=== PATIENT | female | born 1955 | race Caucasian/White ===

== ENCOUNTER → 2016-07-16 | Outpatient (CLI) | payer MEDICARE, OTHER ==
[2016-07-16 07:37] LABS: Blood Urea Nitrogen 19 mg/dL (7-17); Non-African American GFR(MDRD) >60 (>60 ml/min/1.73 sqM)
--- NOTE | 2016-07-16 09:14 | CT ---
EXAMINATION TYPE: CT soft tissue neck w con DATE OF EXAM: 07/16/2016 8:19 AM HISTORY: Neck Mass, history of melanoma at top of head. Palpable mass right mandible per patient COMPARISON: CT neck January 13, 2016. CT DLP: 700.6 mGycm. Automated Exposure Control for Dose Reduction was Utilized. TECHNIQUE: CT scan of the neck is performed with IV Contrast, patient injected with 100 mL of Omnipa que 300, axial images are obtained, coronal and sagittal reformatted images are reviewed. FINDINGS: Airway: No gross abnormality seen. Parotid/submandibular glands: Fairly moderate symmetric fat replaced atrophy of both submandibular gl ands is redemonstrated. There is asymmetric diminished size of left parotid gland with mild to modera te fat replaced atrophy of both parotid glands redemonstrated. Surgical clips posteriorly are consist ent with prior excision at this level posterior left parotid gland. Carotid/Vascular Structures: No significant plaque or stenosis on carotid bulb level bilaterally Osseous Structures: Spine is straightened stable from prior. Other: No worrisome solid or cystic mass or abnormal fluid collection is identified with particular a ttention to the right submandibular level. There are few scattered benign-appearing subcentimeter lym ph nodes throughout the neck including slightly more prominent but stable subcentimeter submental lym ph nodes on axial image 45. No concerning greater than 1 cm new neck lymph nodes are clearly seen. There is 1.3 x 0.8 cm right posterior scalp soft tissue nodule at level of cerebellum on axial image 68, in retrospect may have been present back to April 19, 2015 exam, does not extend to skin surfa ce, on prior PET/CT November 2013 may be present but less prominent on axial image 30. IMPRESSION: Possible new or enlarging deep subcutaneous nodule right posterior scalp at level of post erior fossa in which metastatic melanoma recurrence cannot be excluded, consider repeat PET/CT to fur ther assess.
== END | disposition home or self-care (01) ==
LOC: RADCTMAIN 06:42
PROVIDERS: ATTEND Internal Medicine Hematology & Oncology
DX: C43.22 Malignant melanoma of left ear and external auricular canal (principal); R22.1 Localized swelling, mass and lump, neck
CPT/HCPCS: 82565; 84520; 70491; Q9967

== ENCOUNTER → 2016-08-01 | Outpatient (CLI) | payer MEDICARE, OTHER ==
--- NOTE | 2016-08-03 09:42 | PE ---
Nuclear medicine PET/CT HISTORY: Melanoma Patient received 10.2 mCi of F-18 FDG intravenously. Delayed scanning performed whole body. Correlation previous nuclear medicine PET/CT 12/16/2013, CT 07/16/2016, CT chest abdomen pelvis 2015 The exam is somewhat degraded by patient's body habitus. Neck and chest: At the posterior right neck there is a focus of activity, SUV 11.2 within the posteri or musculature on the right which corresponds to the abnormality seen on patient's neck CT. No eviden t adenopathy. No lung mass. No pleural or pericardial effusion. The left-sided uptake seen on prior m edicine PET/CT within the parotid gland is no longer evident. Post op changes are present in the left parotid. Abdomen pelvis: No retroperitoneal adenopathy. Patient is post cholecystectomy. No hypermetabolic upt manas. Diverticular change noted in the sigmoid colon. Left ovary is present. Uterus and right ovary ar e not seen. No evident adenopathy. Osseous structures: Degenerative disc changes in the visualized spine. Within the right knee, left an kle some mild hypermetabolic uptake may be related to degenerative change. EXTREMITIES: There is muscular uptake noted. IMPRESSION: Posterior scalp musculature on the right is asymmetric and suspicious, somewhat more cons picuous than on previous exam and is indeterminate, there is elevated SUV. Interval surgery to the le ft parotid gland. No additional suspicious hypermetabolic uptake.
== END | disposition home or self-care (01) ==
LOC: RADPETMAIN 13:26
PROVIDERS: ATTEND Internal Medicine Hematology & Oncology
DX: C43.9 Malignant melanoma of skin, unspecified (principal)
CPT/HCPCS: 78816; A9552

== ENCOUNTER → 2017-05-14 | Outpatient (CLI) | payer MEDICARE, OTHER ==
--- NOTE | 2017-05-14 11:18 | BD ---
EXAMINATION TYPE: MG DEXA axial skeleton. DATE OF EXAM: 05/14/2017 COMPARISON: NONE CLINICAL HISTORY: 61 YR OLD FEMALE: ICD-10 CODE.....Z78.0 POST MENOPAUSAL W/O HRT Height: 64.4 Weight: 273 FRAX RISK QUESTIONS: Alcohol (3 or more units per day): NO Family History (Parent hip fracture): NO Glucocorticoids (More than 3mos): YES (Ex: prednisone, prednisolone, methylprednisolone, dexamethasone, and hydrocortisone). History of Fracture in Adulthood: NO Secondary Osteoporosis: YES 1. Type 1 Diabetes: YES 2. Hyperthyroidism: NO 3. Menopause before 45: NO 4. Malnutrition: NO 5. Chronic liver disease: NO Rheumatoid Arthritis: NO Current Tobacco Use: NO RISK FACTORS HISTORY OF: LT ANKLE, RT ARM.... AN ADULT...UNDER AGE 48 Family History of Osteoporosis: YES, GRANDMOTHER, NO FX OF HIP Active: YES Diet low in dairy products/other sources of calcium: NO Postmenopausal woman: AT 52 YRS OLD Lost more than 2 inches in height since high school: NO Hyperparathyroidism: NO Adrenal Insufficiency: NO MEDICATIONS: Prednisone or other steroids: SINGULAIR, FOR ASTHMA, ALBUTEROL INHALER MACHINE How Lon+ YRS Thyroid Medications: YES, GENERIC SYNTHROID How Lon YRS Additional Medications: BP MEDS, CELEXA, CHEMO AND RADIATION, REFLUX MED, DIABETIC MEDS, INSULIN, VIT D3 Additional History: MELANOMA, LYMPHOMA, EXAM MEASUREMENTS: Bone mineral densitometry was performed using the [employer] System. Bone mineral density as measured about the Lumbar spine is: ----- L1-L4(G/cm2): 1.372 T Score Values are as follows: ----- L1: 0.6 ----- L2: 1.8 ----- L3: 2.6 ----- L4: 1.0 ----- L1-L4: 1.6 Bone mineral density FIRST BONE DENSITY AT [facility] Bone mineral density about the R hip (g/cm2): 1.063 Bone mineral density about the L hip (g/cm2): 1.005 T Score values are as follows: -----R Neck: -1.2 -----L Neck: -1.2 -----R Total: 0.4 -----L Total: 0.0 Bone mineral density FIRST AT [facility] FRAX%S: THERE IS A 18.0% CHANCE OF A MAJOR OSTEOPOROTIC FX AND A 1.5% FOR HIP FX....PROBABILITY OF FX IN 10 YRS TIME IMPRESSION: No evidence for osteoporosis or osteopenia. NOTE: T-SCORE=SD OF THE YOUNG ADULT MEAN.
== END | disposition home or self-care (01) ==
LOC: RADBDWWP 08:39
PROVIDERS: ATTEND Family Medicine
DX: Z78.0 Asymptomatic menopausal state (principal)
CPT/HCPCS: 77080

== ENCOUNTER → 2017-08-14 | Outpatient (CLI) | payer MEDICARE, OTHER ==
--- NOTE | 2017-08-16 12:03 | PE ---
EXAMINATION TYPE: PET CT fusion whole body DATE OF EXAM: 08/14/2017 COMPARISON: Prior PET/CT February 06, 2017 and older studies HISTORY: Melanoma head and neck area progress study. Surgery in 2015 per patient. TECHNIQUE: Following the intravenous administration of 12.54 mCi of F-18 FDG, whole body images are performed from the top of skull to the bottom of feet. Images are reviewed on the computer in the co ken[place], axial, and sagittal planes. Reconstructed rotating images are created on independent workstat ion and reviewed on the computer. A localization noncontrast CT is performed in conjunction with e PET scan. SCAN: Subsequent Scan FINDINGS: HEAD: No new areas of suspicious hypermetabolic uptake are present. There is prior excision or defect high right occipital region axial images 4 through 10 noted. Suspect successful treatment to low rig ht occipital lesion near axial image 44 probable excisional between July and January 2017 as there i s deformity without hypermetabolic uptake on current study similar to most recent PET/CT study. NECK: No new areas of suspicious hypermetabolic uptake are seen. CHEST, MEDIASTINUM, AND HILAR REGION: No new areas of abnormal hypermetabolic uptake are present. ABDOMEN AND PELVIS: No new areas of abnormal hypermetabolic uptake are present. OSSEOUS STRUCTURES: No suspicious new areas of hypermetabolic uptake. EXTREMITIES: No new suspicious soft tissue foci of hypermetabolic uptake. OTHER CT: Prominent but subcentimeter's a metabolic submandibular lymph nodes are incidentally noted bilaterally. Cholecystectomy clips are seen. There are scattered pelvic phleboliths. Uterus is surgically absent. There is symmetric lateral subluxation or positioning of patella at the patellofemoral space. There i s symmetric mild to moderate generalized atrophy of medial leg muscles axial image 140. There is symm etric mild posterior and inferior subcutaneous edema in the hindfoot. IMPRESSION: No recurrent hypermetabolic soft tissue nodule to suggest melanoma recurrence is identifi ed. No significant change from most recent PET/CT.
== END | disposition home or self-care (01) ==
LOC: RADPETMAIN 09:34
PROVIDERS: ATTEND Internal Medicine Hematology & Oncology
DX: C43.22 Malignant melanoma of left ear and external auricular canal (principal)
CPT/HCPCS: 78816; A9552

== ENCOUNTER → 2018-02-12 | Outpatient (CLI) | payer MEDICARE, OTHER ==
--- NOTE | 2018-02-13 16:26 | PE ---
EXAMINATION TYPE: PET CT fusion whole body DATE OF EXAM: 02/12/2018 COMPARISON: Prior PET/CT 2017 and older studies. HISTORY: Melanoma originally diagnosed in the neck and 2007 completed chemotherapy in 2009 and radiat ion treatment in 2010 TECHNIQUE: Following the intravenous administration of 11.94 mCi of F-18 FDG, whole body images are performed from the top of skull to the bottom of the feet. Images are reviewed on the computer in th e coronal, axial, and sagittal planes. Reconstructed rotating images are created on independent work station and reviewed on the computer. A noncontrast CT is performed in conjunction with the PET sca n. SCAN: Subsequent Scan FINDINGS: HEAD AND NECK: Focal scalp defect high right occipital region axial image 5 is redemonstrated. No ne w areas of hypermetabolic uptake or suspicious masses are present. No new suspicious hypermetabolic u ptake is seen in the neck. CHEST, MEDIASTINUM, AND HILAR REGION: No new areas of abnormal hypermetabolic uptake are present. ABDOMEN AND PELVIS: No new areas of abnormal hypermetabolic uptake are identified. OSSEOUS STRUCTURES: No suspicious areas of hypermetabolic uptake. LOWER EXTREMITIES: No new suspicious soft tissue foci of hypermetabolic uptake. OTHER CT: Prominent but subcentimeter ametabolic submandibular lymph nodes are redemonstrated bilater ally near image 68. Cholecystectomy clips are again seen. There are scattered pelvic phleboliths. Uterus is surgically absent. There is symmetric lateral subluxation or positioning of patella at the patellofemoral space. There i s symmetric mild to moderate generalized atrophy of medial leg muscles axial image 78 redemonstrated. IMPRESSION: No suspicious recurrent hypermetabolic mass to suggest melanoma recurrence. No significan t change from most recent PET/CT.
== END | disposition home or self-care (01) ==
LOC: RADPETMAIN 08:29
PROVIDERS: ATTEND Internal Medicine Hematology & Oncology
DX: C43.22 Malignant melanoma of left ear and external auricular canal (principal)
CPT/HCPCS: 78816; A9552

== ENCOUNTER → 2018-08-13 | Outpatient (CLI) | payer MEDICARE, OTHER ==
--- NOTE | 2018-08-15 07:30 | PE ---
EXAMINATION TYPE: PET CT fusion whole body DATE OF EXAM: 08/13/2018 COMPARISON: CT neck November 16, 2016. Whole-body CT January 13, 2016. Prior PET/CT February 12 18 and older PET/CTs HISTORY: History of malignant melanoma diagnosed and treated 2013 and 2014 TECHNIQUE: Following the intravenous administration of 10.95 mCi of F-18 FDG, whole body images are performed from the top of skull to the bottom of feet. Images are reviewed on the computer in the co ken[place], axial, and sagittal planes. Reconstructed rotating images are created on independent workstat ion and reviewed on the computer. A noncontrast CT is performed in conjunction with the PET scan. SCAN: Subsequent Scan FINDINGS: Exam noted slightly suboptimal due to patient body habitus. SKULL BASE AND NECK: Right occipital scalp defect axial images 6 through 11 is redemonstrated. No ne w areas of suspicious hypermetabolic uptake throughout the scalp or neck. CHEST, MEDIASTINUM, AND HILAR REGION: No areas of suspicious hypermetabolic uptake. ABDOMEN AND PELVIS: No new areas of suspicious hypermetabolic uptake. OSSEOUS STRUCTURES: No suspicious hypermetabolic uptake. LOWER EXTREMITIES: Moderate bilateral patellofemoral narrowing is present bilaterally with lateral p ositioning. Mild generalized atrophy medial leg muscles bilaterally is again seen. OTHER CT: Evaluation is suboptimal secondary to patient's large body habitus. Stable prominent but harrison bcentimeter bilateral submandibular lymph nodes. Cholecystectomy clips are redemonstrated. Some diverticula in the sigmoid colon are again seen. Uteru s is surgically absent. Scattered pelvic phleboliths are redemonstrated. IMPRESSION: No new suspicious hypermetabolic masses to suggest metastatic melanoma recurrence. No sig nificant change from recent PET/CT.
== END | disposition home or self-care (01) ==
LOC: RADPETMAIN 07:24
PROVIDERS: ATTEND Internal Medicine Hematology & Oncology
DX: C43.22 Malignant melanoma of left ear and external auricular canal (principal)
CPT/HCPCS: 78816; A9552

== ENCOUNTER → 2019-08-04 | Outpatient (CLI) | payer MEDICARE, OTHER ==
--- NOTE | 2019-08-04 13:04 | PE ---
EXAMINATION TYPE: PET CT fusion whole body DATE OF EXAM: 08/04/2019 COMPARISON: Prior PET/CT August 13, 2018 and older PET CTs. HISTORY: Melanoma of the scalp diagnosed 2012 with neck recurrence 2017 and surgical dissection progr ess study. TECHNIQUE: Following the intravenous administration of 11.60 mCi of F-18 FDG, whole body images are performed from the top of skull to the bottom of the feet. Images are reviewed on the computer in th e coronal, axial, and sagittal planes. Reconstructed rotating images are created on independent work station and reviewed on the computer. A noncontrast CT is performed in conjunction with the PET sca n. SCAN: Subsequent Scan FINDINGS: Slightly suboptimal due to patient's large body habitus. HEAD AND NECK: High posterior occipital scalp defect up to cranial bone redemonstrated. No new areas of suspicious hypermetabolic uptake in the soft tissue of the scalp or neck identified. CHEST, MEDIASTINUM, AND HILAR REGION: Some artifact related to patient's body habitus. Focus of uptak e left upper extremity presumed injection site on the reconstructed rotated view. No new areas of sid picious hypermetabolic uptake. ABDOMEN AND PELVIS: No new areas of suspicious hypermetabolic uptake. OSSEOUS STRUCTURES: No new areas of suspicious hypermetabolic uptake. EXTREMITIES: No new areas of suspicious hypermetabolic uptake. Persistent mild to moderate generalize d medial lower leg muscular atrophy and moderate to advanced degenerative changes in both knees redem onstrated. OTHER CT: Stable prominent but subcentimeter bilateral submandibular lymph nodes. Cholecystectomy clips are redemonstrated. Some scattered colonic diverticula again seen. Uterus is harrison rgically absent. Scattered pelvic phleboliths are redemonstrated. IMPRESSION: No new suspicious hypermetabolic soft tissue masses to suggest metastatic melanoma recurr ence.
== END | disposition home or self-care (01) ==
LOC: RADPETMAIN 07:54
PROVIDERS: ATTEND Internal Medicine Hematology & Oncology
DX: C43.22 Malignant melanoma of left ear and external auricular canal (principal); E11.9 Type 2 diabetes mellitus without complications; Z92.21 Personal history of antineoplastic chemotherapy
CPT/HCPCS: 78816; A9552

== ENCOUNTER 2020-06-27 06:57 | Day surgery (SDC) | payer MEDICARE, OTHER ==
[2020-06-25 10:23] VITALS: BMI 42.3
[~2020-06-27 06:57] MED LIST: LACTATED RINGERS 1,000 ML IV SCH
[2020-06-27 07:20] VITALS: TEMP 97.6
[2020-06-27 07:37] LABS: Glucose,Whole Blood 195 mg/dL (75-99)
[2020-06-27] MEDS ORDERED: LIDOCAINE 1% (10MG/ML) FOR IV START INTRADERMA ONE (07:37)
[2020-06-27] MEDS ORDERED: PROPOFOL 10 MG/ML 20 ML VIAL IV ONE (07:54)
[2020-06-27] MEDS ORDERED: GLUCAGON 1 MG/ML VIAL ONE (07:54)
--- NOTE | 2020-06-27 07:58 | P.GSHP ---
History of Present Illness H&P Date: 06/27/20 Chief Complaint: Change in bowel habits, screening colonoscopy Is a 64-year-old female her screening colonoscopy. She's had change in bowel habits with some diarrhea. Past Medical History Past Medical History: Asthma, Cancer, Diabetes Mellitus, GERD/Reflux, Hyperlipidemia, Hypertension, Pneumonia, Thyroid Disorder Additional Past Medical History / Comment(s): IDDM, HX MELANOMA & LYMPH NODES, TORN LEFT ROTATOR CUFF, HX COLON POYPS, OAB, HAVING DIARRHEA. History of Any Multi-Drug Resistant Organisms: None Reported Past Surgical History: Appendectomy, Breast Surgery, Section, Cholecystectomy, Heart Catheterization, Hysterectomy, Orthopedic Surgery Additional Past Surgical History / Comment(s): BREAST REDUCTION; REMOVAL OF MELANOMA OFF TOP HEAD & REMOVED LYMPH NODE-6 ON EACH SIDE OF NECK ;L ANKLE FX & REPAIR., 4 lymph nodes at back of head removed. Past Anesthesia/Blood Transfusion Reactions: No Reported Reaction, Motion Sickness Additional Past Anesthesia/Blood Transfusion Reaction / Comment(s): HX VERTIGO Past Psychological History: No Psychological Hx Reported Smoking Status: Never smoker Past Alcohol Use History: None Reported Past Drug Use History: None Reported - Past Family History Mother Family Medical History: Cancer Additional Family Medical History / Comment(s): mother breast and bone, Father Family Medical History: Cancer Son(s) Family Medical History: Cancer Brother(s) Family Medical History: Cancer Sister(s) Family Medical History: Cancer Medications and Allergies Home Medications Medication Instructions Recorded Confirmed Type Cholecalciferol [Vitamin D3] 5,000 unit PO DAILY 09/05/13 06/27/20 History Citalopram Hydrobromide [CeleXA] 40 mg PO DAILY 09/05/13 06/27/20 History Levothyroxine Sodium [Synthroid] 50 mcg PO DAILY 09/05/13 06/27/20 History Lisinopril [Prinivil] 5 mg PO DAILY 09/05/13 06/27/20 History Meclizine [Antivert] 25 mg PO DIRECTED PRN 09/05/13 06/27/20 History Montelukast [Singulair] 10 mg PO DAILY 09/05/13 06/27/20 History Naproxen 500 mg PO DIRECTED PRN 09/05/13 06/27/20 History Vitamin E (Dl,Tocopheryl Acet) 400 unit PO DAILY 09/05/13 06/27/20 History [Vitamin E] Aspirin [Adult Low Dose Aspirin EC] 81 mg PO DAILY 06/25/20 06/27/20 History Diphenoxylate HCl/Atropine 2 tab PO QID PRN 06/25/20 06/27/20 History [Lomotil 2.5-0.025 mg Tablet] Ergocalciferol [Vitamin D2 (1250 1,250 mcg PO WEEKLY 06/25/20 06/27/20 History Mcg = [id number] Iu)] Famotidine [Pepcid] 20 mg PO BID PRN 06/25/20 06/27/20 History Garlic 1 each PO DAILY 06/25/20 06/27/20 History Insulin Aspart Protam & Aspart 52 unit SQ BID 06/25/20 06/27/20 History [NovoLOG MIX 70-30 Flexpen] L.acidoph,Paracasei, B.lactis 1 each PO DAILY 06/25/20 06/27/20 History [Probiotic] Oxybutynin Chloride [Ditropan XL] 10 mg PO DAILY 06/25/20 06/27/20 History sitaGLIPtin [Januvia] 100 mg PO DAILY 06/25/20 06/27/20 History Allergies Allergy/AdvReac Type Severity Reaction Status Date / Time [facility] Allergy Rash/Hives Verified 06/25/20 09:51 codeine Allergy Nausea & Verified 06/25/20 09:52 Vomiting, Headache lemon [Lemon] Allergy Rash/Hives Verified 06/25/20 09:51 Sulfa (Sulfonamide Allergy Swelling Verified 06/25/20 09:51 Antibiotics) hoyt AdvReac Severe Diarrhea Verified 06/25/20 09:52 nickel AdvReac Unknown red skin Verified 06/25/20 10:24 Jewelry AdvReac Unknown Red skin Uncoded 06/25/20 10:25 Surgical - Exam Vital Signs Temp Pulse Resp BP Pulse Ox 97.6 F 86 16 156/84 90 L 06/27/20 07:18 06/27/20 07:18 06/27/20 07:18 06/27/20 07:18 06/27/20 07:18 - General well developed, well nourished, no distress - Eyes PERRL - ENT normal pinna - Neck no masses - Respiratory normal expansion - Cardiovascular Rhythm: regular - Abdomen Abdomen: soft, non tender Results - Labs Abnormal Lab Results - Last 24 Hours (Table) 06/27/20 Range/Units 07:34 POC Glucose (mg/dL) 195 H (75-99) mg/dL Assessment and Plan Assessment: We'll perform screening colonoscopy
--- NOTE | 2020-06-27 08:11 | P.OP ---
Date of Procedure: 06/27/20 Preoperative Diagnosis: Screening colonoscopy Diarrhea Postoperative Diagnosis: Internal and external hemorrhoids Diverticulosis Procedure(s) Performed: Colonoscopy Anesthesia: MAC Surgeon: Chema Drake Pathology: none sent Condition: stable Disposition: PACU Description of Procedure: The patient's placed on the endoscopy table lateral position. She received IV sedation. Digital rectal exam was performed which revealed internal and external hemorrhoids. There is she a small thrombosed hemorrhoid. The flexible colonoscope was then placed patient anus passed throughout the entire colon. The ileocecal valve was visualized. Cecum, ascending and transverse colon appeared normal. The descending old appeared normal. In the sigmoid colon there is extensive diverticular disease with evidence of previous diverticulitis. The colon was quite scarred this area. Scope was withdrawn anus and this appeared normal. Scope was withdrawn for patient.
[2020-06-27 09:23] VITALS: BP 140/76; PULSE 66; RESP 20
== END 2020-06-27 09:00 | disposition home or self-care (01) ==
LOC: ORWHC2ENDO 06:57
PROVIDERS: ATTEND Surgery
DX: Z87.19 Personal history of other diseases of the digestive system (principal); K64.5 Perianal venous thrombosis; J45.909 Unspecified asthma, uncomplicated; E11.9 Type 2 diabetes mellitus without complications; K21.9 Gastro-esophageal reflux disease without esophagitis; E78.5 Hyperlipidemia, unspecified; I10 Essential (primary) hypertension; Z87.01 Personal history of pneumonia (recurrent); E07.9 Disorder of thyroid, unspecified; Z85.820 Personal history of malignant melanoma of skin; Z86.010 Personal history of colon polyps; N32.81 Overactive bladder; Z90.89 Acquired absence of other organs; Z98.891 History of uterine scar from previous surgery; Z98.890 Other specified postprocedural states; Z90.49 Acquired absence of other specified parts of digestive tract; Z90.710 Acquired absence of both cervix and uterus; Z80.3 Family history of malignant neoplasm of breast; Z80.8 Family history of malignant neoplasm of other organs or systems; Z80.9 Family history of malignant neoplasm, unspecified; Z79.82 Long term (current) use of aspirin; Z79.890 Hormone replacement therapy; Z79.4 Long term (current) use of insulin; Z79.899 Other long term (current) drug therapy; Z88.5 Allergy status to narcotic agent; Z91.018 Allergy to other foods; Z91.048 Other nonmedicinal substance allergy status; Z91.09 Other allergy status, other than to drugs and biological substances
CPT/HCPCS: 45378; J1610; J2704

== ENCOUNTER → 2020-08-23 | Outpatient (CLI) | payer MEDICARE, OTHER ==
--- NOTE | 2020-08-27 12:52 | PE ---
EXAMINATION TYPE: PET CT fusion whole body DATE OF EXAM: 08/23/2020 COMPARISON: No recent CT exams Prior PET/CT: 08/04/2019 HISTORY: Melanoma TECHNIQUE: Following the intravenous administration of 10.03 mCi of F-18 FDG, whole body images are performed from the skull base to the midthigh. Images are reviewed on the computer in the coronal, a xial, and sagittal planes. Reconstructed rotating images are created on independent workstation and reviewed on the computer. A localization and attenuation correction CT is performed in conjunction with the PET scan. DLP: 723.98 mGycm SCAN: Subsequent Scan Blood glucose: 122 mg/dL Average Mediastinum SUV: 2.02 Average Liver SUV: 2.34 FINDINGS: Brain: No suspicious uptake identified. MRI recommended for more sensitive evaluation. NECK: Some subtle increased radiotracer submental region. This could correspond to a couple of small lymph nodes within this region. THORAX: Some minimal uptake may be within the left axillary region. No enlarged lymphadenopathy is ev ident. Small lymph node may have an SUV value of 0.99 which is within the inflammatory range. Conside r recent immunizations. ABDOMEN: No abnormal uptake PELVIS: No abnormal uptake Lower extremity: No abnormal uptake. There is diffuse uptake through a right lateral calf muscle. OSSEOUS STRUCTURES: No abnormal uptake LOCALIZATION CT: Noncontributory. There is limitation due to body habitus and technical factors. Some diverticulosis is noted COMPARISON: No significant interval change. IMPRESSION: 1. Mild uptake within the submental region and left axillary region could be inflammatory lymph nodes . Early metastasis is considered less likely. SUV values are in the intermediate range. 2. Suspicious hyperintensity within study not evident o suggest metastatic disease
== END ==
LOC: RADPETMAIN 07:19
PROVIDERS: ATTEND Internal Medicine Hematology & Oncology
DX: I88.9 Nonspecific lymphadenitis, unspecified (principal); C43.22 Malignant melanoma of left ear and external auricular canal
CPT/HCPCS: 78816; A9552

== ENCOUNTER → 2020-09-17 | Outpatient (CLI) | payer MEDICARE, OTHER ==
--- NOTE | 2020-09-17 14:53 | XR ---
EXAMINATION TYPE: XR chest 2V DATE OF EXAM: 09/17/2020 COMPARISON: Chest x-ray 05/07/2010 HISTORY: Hypoxemia, cough and shortness of breath TECHNIQUE: Frontal and lateral views of the chest are obtained. FINDINGS: There is no focal air space opacity, pleural effusion, or pneumothorax seen. The cardiac silhouette size is stable, borderline enlarged, patient is rotated and there is persistent elevation of right hemidiaphragm. The previously seen port in the left pectoral region has been removed. There is bronchial wall thickening. The osseous structures are intact. IMPRESSION: Correlate for bronchitis, reactive airways disease, follow-up as indicated. Borderline h eart size, persistent elevation right hemidiaphragm.
== END | disposition home or self-care (01) ==
LOC: RADXRMAIN 12:10
PROVIDERS: ATTEND Family Medicine
DX: J98.6 Disorders of diaphragm (principal); R09.02 Hypoxemia
CPT/HCPCS: 71046

== ENCOUNTER → 2021-08-15 | Outpatient (CLI) | payer MEDICARE, OTHER ==
--- NOTE | 2021-08-15 15:31 | PE ---
Nuclear medicine PET/CT HISTORY: Melanoma, follow-up patient received 12.9 mCi F-18 FDG intravenously and delayed scanning was performed from the top of t he skull through the feet. An attenuation correction and localization CT scan was performed. Correlation to prior nuclear medicine PET/CT 08/23/2020 Head and neck shows no suspicious uptake. There is no cervical or supraclavicular adenopathy. CHEST: There is no mediastinal, axillary, or hilar adenopathy. No evident lung mass. No suspicious up take. There is no pleural pericardial effusion. ABDOMEN: There is no evident liver mass. Patient is post cholecystectomy. No retroperitoneal adenopat hy or adrenal mass. There is no ascites. No suspicious uptake. No pelvic adenopathy. Uterus and adnex al structures are not seen. Lower extremities show no suspicious uptake. Osseous structures are stable. IMPRESSION: There is no suspicious uptake is evident.
== END | disposition home or self-care (01) ==
LOC: RADXRMAIN 06:30
PROVIDERS: ATTEND Internal Medicine Hematology & Oncology
DX: C43.22 Malignant melanoma of left ear and external auricular canal (principal)
CPT/HCPCS: 78816; A9552

== ENCOUNTER → 2022-08-15 | Outpatient (CLI) | payer MEDICARE, OTHER ==
--- NOTE | 2022-08-16 09:05 | PE ---
EXAMINATION TYPE: PET CT fusion skull to thigh DATE OF EXAM: 08/15/2022 CLINICAL INDICATION:Female, 67 years old with history of C43.22 Melanoma; TECHNIQUE: Following the intravenous administration of 9.27 mCi of F-18 FDG, whole body images are performed from the skull base to the midthigh. Images are reviewed on the computer in the coronal, a xial, and sagittal planes. Reconstructed rotating images are created on independent workstation and reviewed on the computer. A non-contrast CT is performed in conjunction with the PET scan. Glucose level 172 mg/dL COMPARISON: CT 01/13/2016, PET/CT 08/15/2021, FINDINGS: Mediastinal SUV mean is 1.9. Hepatic parenchyma SUV mean is 3.0. SKULL BASE AND NECK: No suspicious radiotracer activity. CHEST, MEDIASTINUM, AND HILAR REGION:No suspicious radiotracer activity. ABDOMEN AND PELVIS: No suspicious radiotracer activity. MUSCULOSKELETAL STRUCTURES: No suspicious radiotracer activity. There is A focus of tracer uptake within the left arm near the cubital fossa max SUV a 8.0. Correlate for inje ction side. OTHER CT: Atherosclerosis of the arterial vasculature including the carotid bifurcations and coronary arteries. The gallbladder is surgically absent. Scattered colonic diverticula present. Multilevel di sc degeneration changes throughout the spine. Osteoporosis changes of the knees. IMPRESSION: 1. No suspicious radiotracer activity. 2. Area of uptake near the left cubital fossa felt to be secondary to injection correlate with injec tion side and physical exam.
== END | disposition home or self-care (01) ==
LOC: RADPETMAIN 07:02
PROVIDERS: ATTEND Internal Medicine Hematology & Oncology
DX: C43.22 Malignant melanoma of left ear and external auricular canal (principal); Z85.820 Personal history of malignant melanoma of skin
CPT/HCPCS: 78815; A9552

== ENCOUNTER → 2023-05-11 | Outpatient (CLI) | payer MEDICARE, OTHER ==
[2023-05-11 11:25] LABS: African American GFR (CKD) >90 (>60 ml/min/1.73 sqM); Blood Urea Nitrogen 14 mg/dL (7-17); Non-African American GFR(CKD) >90 (>60 ml/min/1.73 sqM)
--- NOTE | 2023-05-12 05:11 | CT ---
EXAMINATION TYPE: CT angio neck DATE OF EXAM: 05/11/2023 HISTORY: rt side carotid stenosis hx of melanoma on head and neck COMPARISON: Priors CT neck 2017 CT DLP: 529.5 mGycm. Automated Exposure Control for Dose Reduction was Utilized. TECHNIQUE: CTA scan of the head and neck is performed with IV Contrast, patient injected with 100 mL of Isovue 370, axial images are obtained, coronal and sagittal reformatted images are reviewed. 3D r econstructed images are created on an independent workstation and reviewed. FINDINGS: Carotid/Vascular Structures: Normal three-vessel origin from aortic arch. No significant plaque or st enosis. No significant plaque or stenosis in the common carotid arteries bilaterally. Mild to moderat e mixed plaque left carotid bulb without significant stenosis into the left internal carotid artery. Patent left external carotid artery. Mild calcified plaque distal left internal carotid artery. More severe mixed plaque right carotid bulb extends into proximal internal carotid artery with hemodynamic ally significant stenosis. The diameter is narrowed to 1.8 mm and reconstitutes to 6.2 mm distal to t his. No additional significant plaque or stenosis in the right internal carotid artery. Right vertebr al artery is dominant. Vertebral arteries are patent to basilar junction. Other: Enlarged main pulmonary artery of 3.6 cm suggesting underlying pulmonary artery hypertension. IMPRESSION: Severe mixed plaque right carotid bulb extends into proximal internal carotid artery caus ing hemodynamically significant stenosis with degree of diameter stenosis around 70% identified on th is study. NASCET criteria was used in interpretation of this exam?
== END | disposition home or self-care (01) ==
LOC: RADCTMAIN 10:41
PROVIDERS: ATTEND Family Medicine
DX: I65.21 Occlusion and stenosis of right carotid artery (principal)
CPT/HCPCS: 82565; 84520; 70498; 36415; Q9967

== ENCOUNTER → 2023-08-08 | Outpatient (CLI) | payer MEDICARE, OTHER ==
--- NOTE | 2023-08-08 17:14 | PE ---
EXAMINATION TYPE: PET CT fusion skull to thigh DATE OF EXAM: 08/08/2023 COMPARISON: No recent pertinent CT Prior PET/CT: 08/15/2022 HISTORY: Melanoma TECHNIQUE: Following the intravenous administration of 10.99 mCi of F-18 FDG, whole body images are performed from the skull base to the midthigh. Images are reviewed on the computer in the coronal, a xial, and sagittal planes. Reconstructed rotating images are created on independent workstation and reviewed on the computer. A localization and attenuation correction CT is performed in conjunction with the PET scan. DLP: 1422.26 mGycm SCAN: Subsequent Blood glucose: 200 mg/dL Average Mediastinum SUV: 3.14 Average Liver SUV: 3.44 FINDINGS: There is a heterogenous appearance to the study and radiotracer distribution. Small metasta tic lesions may be difficult to exclude. NECK: Suspicious focal uptake not identified THORAX: Suspicious focal uptake not identified ABDOMEN: Suspicious focal uptake not identified. Liver has a heterogenous appearance. PELVIS: Suspicious focal uptake not identified. OSSEOUS STRUCTURES: Suspicious focal uptake not identified. LOCALIZATION CT: Submental and submandibular lymphadenopathy is present. Suspicious radiotracer uptak e however is not identified. COMPARISON: No suspicious interval change IMPRESSION: 1. No suspicious uptake to suggest recurrent or metastatic melanoma. 2. There is some limitation on the examination due to heterogeneous distribution of radiotracer.
== END | disposition home or self-care (01) ==
LOC: RADPETMAIN 07:28
PROVIDERS: ATTEND Internal Medicine
DX: C43.22 Malignant melanoma of left ear and external auricular canal (principal)
CPT/HCPCS: 78815; A9552

== ENCOUNTER → 2024-01-07 | Outpatient (CLI) | payer MEDICARE, OTHER ==
[2024-01-07 15:31] LABS: ALT 18 U/L (8-44); AST 15 U/L (13-35); Albumin 4.1 g/dL (3.8-4.9); Albumin/Globulin Ratio 1.95 Ratio (1.60-3.17); Alkaline Phosphatase 52 U/L (41-126); BUN/Creat Ratio 16.12 Ratio (12.00-20.00); Blood Urea Nitrogen 12.9 mg/dL (9.0-27.0); Calcium 9.8 mg/dL (8.7-10.3); Carbon Dioxide 26.9 mmol/L (21.6-31.8); Chloride 104 mmol/L (96-109); Chol/HDL Ratio 4.36 Ratio; Globulin 2.1 g/dL (1.6-3.3); Glucose 186 mg/dL (70-110); LDL Cholesterol,Calculated 128.6 mg/dL (0.0-131.0); Potassium 4.7 mmol/L (3.5-5.5); Sodium 141 mmol/L (135-145); Total Bilirubin 0.6 mg/dL (0.3-1.2); Total Protein 6.2 g/dL (6.2-8.2)
== END | disposition home or self-care (01) ==
LOC: LABWHC1 10:33
PROVIDERS: ATTEND Internal Medicine Interventional Cardiology
DX: E78.2 Mixed hyperlipidemia (principal)
CPT/HCPCS: 36415; 80053; 80061

== ENCOUNTER → 2024-01-19 | Outpatient (CLI) | payer MEDICARE, OTHER ==
[2024-01-19 12:43] LABS: African American GFR (CKD) >90 (>60 ml/min/1.73 sqM); Blood Urea Nitrogen 26 mg/dL (7-17); Non-African American GFR(CKD) 86 (>60 ml/min/1.73 sqM)
--- NOTE | 2024-01-19 14:42 | CT ---
EXAMINATION TYPE: CT chest w con CT DLP: 809 mGycm, Automated exposure control for dose reduction was used. DATE OF EXAM: 01/19/2024 1:52 PM COMPARISON: Multiple PET CT with most recent 08/08/2023, CT chest abdomen and pelvis 01/13/2016 CLINICAL INDICATION:Female, 68 years old with history of J45.40 MODERATE PERSISTENT ASTHMA, UNCOMPL J 44.89; PHH, SOB, asthma TECHNIQUE: Multiple axial images were obtained through the chest following the administration of 100 cc of Isovue 300. . Coronal and sagittal reformats reviewed. FINDINGS: LUNGS/ PLEURA: No pleural effusion, pneumothorax, focal consolidation. No suspicious pulmonary nodule or mass. Elevation of the right hemidiaphragm. AIRWAY: Patent and unremarkable.. HEART: Size within normal limits.No pericardial effusion. Small coronary calcifications. MEDIASTINUM: No evidence of adenopathy. VASCULATURE: No aortic aneurysm. Mild atherosclerotic calcification of the aortic arch. No filling d efect identified within the central pulmonary arterial vasculature. Dilated main pulmonary artery whi ch can be seen with pulmonary arterial hypertension. MUSCULOSKELETAL: No acute osseous abnormalities. Advanced bilateral shoulder arthropathy. Mild multil evel degenerative disc disease. SOFT TISSUES/LYMPH NODES: Unremarkable. LOWER NECK: No significant findings. UPPER ABDOMEN: Gallbladder is surgically absent. Small periampullary duodenal diverticulum . IMPRESSION: No acute thoracic process. No evidence for recurrence within the chest and visualized upper abdomen. [facility], , 01/19/2024 2:40 PM
== END | disposition home or self-care (01) ==
LOC: RADCTMAIN 11:58
PROVIDERS: ATTEND Family Medicine
DX: J45.40 Moderate persistent asthma, uncomplicated (principal); J44.89 Other specified chronic obstructive pulmonary disease; K57.10 Diverticulosis of small intestine without perforation or abscess without bleeding; I70.0 Atherosclerosis of aorta
CPT/HCPCS: 82565; 84520; 71260; 36415; Q9967

== ENCOUNTER 2024-02-15 18:04 | Observation (INO) | payer MEDICARE, OTHER ==
--- NOTE | 2024-02-15 20:08 | ED ---
General Adult HPI - General Chief complaint: GI Bleed Stated complaint: NVD/blood in stool Source: patient Mode of arrival: ambulatory Limitations: no limitations - History of Present Illness Initial comments: 68-year-old female presenting with chief complaint of nausea vomiting diarrhea. Symptoms started on Wednesday. Yesterday the patient had blood clots in her stool. Admits to blood thinners. Admits to left lower quadrant pain. - Related Data Home Medications Medication Instructions Recorded Confirmed Cholecalciferol [Vitamin D3] 5,000 unit PO DAILY 09/05/13 06/27/20 Citalopram Hydrobromide [CeleXA] 40 mg PO DAILY 09/05/13 06/27/20 Levothyroxine Sodium [Synthroid] 50 mcg PO DAILY 09/05/13 06/27/20 Lisinopril [Prinivil] 5 mg PO DAILY 09/05/13 06/27/20 Meclizine [Antivert] 25 mg PO DIRECTED PRN 09/05/13 06/27/20 Montelukast [Singulair] 10 mg PO DAILY 09/05/13 06/27/20 Naproxen 500 mg PO DIRECTED PRN 09/05/13 06/27/20 Vitamin E (Dl,Tocopheryl Acet) 400 unit PO DAILY 09/05/13 06/27/20 [Vitamin E] Aspirin [Adult Low Dose Aspirin EC] 81 mg PO DAILY 06/25/20 06/27/20 Diphenoxylate HCl/Atropine 2 tab PO QID PRN 06/25/20 06/27/20 [Lomotil 2.5-0.025 mg Tablet] Ergocalciferol [Vitamin D2 (1250 1,250 mcg PO WEEKLY 06/25/20 06/27/20 Mcg = 54904 Iu)] Famotidine [Pepcid] 20 mg PO BID PRN 06/25/20 06/27/20 Garlic 1 each PO DAILY 06/25/20 06/27/20 Insulin Aspart Prot/Insuln Asp 52 unit SQ BID 06/25/20 06/27/20 [NovoLOG MIX 70-30 Flexpen] L.acidoph,Paracasei, B.lactis 1 each PO DAILY 06/25/20 06/27/20 [Probiotic] oxyBUTYnin chloride [Ditropan XL] 10 mg PO DAILY 06/25/20 06/27/20 sitaGLIPtin [Januvia] 100 mg PO DAILY 06/25/20 06/27/20 Allergies Allergy/AdvReac Type Severity Reaction Status Date / Time cayenne Allergy Rash/Hives Verified 02/15/24 18:54 codeine Allergy Nausea & Verified 02/15/24 18:54 Vomiting, Headache lemon [Lemon] Allergy Rash/Hives Verified 02/15/24 18:54 Sulfa (Sulfonamide Allergy Swelling Verified 02/15/24 18:54 Antibiotics) hoyt AdvReac Severe Diarrhea Verified 02/15/24 18:54 nickel AdvReac Unknown red skin Verified 02/15/24 18:54 coffee (Coffea arabica) AdvReac Diarrhea Verified 02/15/24 18:54 Jewelry AdvReac Unknown Red skin Uncoded 02/15/24 18:54 Review of Systems ROS Statement: Those systems with pertinent positive or pertinent negative responses have been documented in the HPI. ROS Other: All systems not noted in ROS Statement are negative. Past Medical History Past Medical History: Asthma, Cancer, Diabetes Mellitus, GERD/Reflux, Hyperlipi demia, Hypertension, Pneumonia, Thyroid Disorder Additional Past Medical History / Comment(s): IDDM, HX MELANOMA & LYMPH NODES, TORN LEFT ROTATOR CUFF, HX COLON POYPS, OAB, HAVING DIARRHEA. History of Any Multi-Drug Resistant Organisms: None Reported Past Surgical History: Appendectomy, Breast Surgery, Section, Cho lecystectomy, Heart Catheterization, Hysterectomy, Orthopedic Surgery Additional Past Surgical History / Comment(s): BREAST REDUCTION; REMOVAL OF MELANOMA OFF TOP HEAD & REMOVED LYMPH NODE-6 ON EACH SIDE OF NECK ;L ANKLE FX & REPAIR., 4 lymph nodes at back of head removed. COLONOSCOPY, Past Anesthesia/Blood Transfusion Reactions: No Reported Reaction, Motion Sickness Additional Past Anesthesia/Blood Transfusion Reaction / Comment(s): HX VERTIGO Past Psychological History: No Psychological Hx Reported Smoking Status: Never smoker Past Alcohol Use History: None Reported Past Drug Use History: None Reported - Past Family History Mother Family Medical History: Cancer Additional Family Medical History / Comment(s): mother breast and bone, Father Family Medical History: Cancer Son(s) Family Medical History: Cancer Brother(s) Family Medical History: Cancer Sister(s) Family Medical History: Cancer General Exam - General Exam Comments Initial Comments: Visual Physical Exam Vital signs reviewed General: Well-appearing, nontoxic, no acute distress. Head: Normocephalic, atraumatic Eyes: PERRLA, EOMI ENT: Airway patent Chest: Nonlabored breathing Skin: No visual rash, normal skin tone Neuro: Alert and oriented 3 Musculoskeletal: No gross abnormalities Limitations: no limitations Course Vital Signs 02/15/24 18:48 Temperature 98.6 F Pulse Rate 69 Respiratory 18 Rate Blood Pressure 104/71 O2 Sat by Pulse 95 Oximetry Medical Decision Making - Medical Decision Making I performed the quick note portion of this visit, electronically signed Sánchez Delgadillo PA-C - Lab Data Result diagrams: 02/15/24 20:07 02/15/24 20:07 Lab Results 02/15/24 02/15/24 02/15/24 Range/Units 20:07 20:07 20:07 WBC 12.1 H (3.8-10.6) k/uL RBC 5.07 (3.80-5.40) m/uL Hgb 15.0 (11.4-16.0) gm/dL Hct 46.0 (34.0-46.0) % MCV 90.8 (80.0-100.0) fL MCH 29.6 (25.0-35.0) pg MCHC 32.6 (31.0-37.0) g/dL RDW 13.2 (11.5-15.5) % Plt Count 259 (150-450) k/uL MPV 7.2 Neutrophils % 74 % Lymphocytes % 17 % Monocytes % 5 % Eosinophils % 2 % Basophils % 1 % Neutrophils # 9.0 H (1.3-7.7) k/uL Lymphocytes # 2.0 (1.0-4.8) k/uL Monocytes # 0.6 (0-1.0) k/uL Eosinophils # 0.2 (0-0.7) k/uL Basophils # 0.1 (0-0.2) k/uL APTT 22.4 (22.0-30.0) sec Sodium 134 L (137-145) mmol/L Potassium 4.3 (3.5-5.1) mmol/L Chloride 102 (98-107) mmol/L Carbon Dioxide 25 (22-30) mmol/L Anion Gap 7 mmol/L BUN 14 (7-17) mg/dL Creatinine 0.68 (0.52-1.04) mg/dL Est GFR (CKD-EPI)AfAm >90 (>60 ml/min/1.73 sqM) Est GFR (CKD-EPI)NonAf 89 (>60 ml/min/1.73 sqM) Glucose 165 H (74-99) mg/dL Calcium 9.2 (8.4-10.2) mg/dL Total Bilirubin 0.8 (0.2-1.3) mg/dL AST 19 (14-36) U/L ALT 18 (4-34) U/L Alkaline Phosphatase 51 (38-126) U/L Troponin I (0.000-0.034) ng/mL Total Protein 6.3 (6.3-8.2) g/dL Albumin 3.9 (3.5-5.0) g/dL Lipase (23-300) U/L 02/15/24 02/15/24 Range/Units 20:07 20:08 WBC (3.8-10.6) k/uL RBC (3.80-5.40) m/uL Hgb (11.4-16.0) gm/dL Hct (34.0-46.0) % MCV (80.0-100.0) fL MCH (25.0-35.0) pg MCHC (31.0-37.0) g/dL RDW (11.5-15.5) % Plt Count (150-450) k/uL MPV Neutrophils % % Lymphocytes % % Monocytes % % Eosinophils % % Basophils % % Neutrophils # (1.3-7.7) k/uL Lymphocytes # (1.0-4.8) k/uL Monocytes # (0-1.0) k/uL Eosinophils # (0-0.7) k/uL Basophils # (0-0.2) k/uL APTT (22.0-30.0) sec Sodium (137-145) mmol/L Potassium (3.5-5.1) mmol/L Chloride (98-107) mmol/L Carbon Dioxide (22-30) mmol/L Anion Gap mmol/L BUN (7-17) mg/dL Creatinine (0.52-1.04) mg/dL Est GFR (CKD-EPI)AfAm (>60 ml/min/1.73 sqM) Est GFR (CKD-EPI)NonAf (>60 ml/min/1.73 sqM) Glucose (74-99) mg/dL Calcium (8.4-10.2) mg/dL Total Bilirubin (0.2-1.3) mg/dL AST (14-36) U/L ALT (4-34) U/L Alkaline Phosphatase (38-126) U/L Troponin I <0.012 (0.000-0.034) ng/mL Total Protein (6.3-8.2) g/dL Albumin (3.5-5.0) g/dL Lipase 138 (23-300) U/L Disposition Clinical Impression: Diverticulitis Disposition: ADMITTED IP TO THIS HOSP Condition: Fair Referrals: Anna Lopez DO [Primary Care Provider] - 1-2 days Time of Disposition: 23:21
[2024-02-15 20:12] LABS: Basophils # (A) 0.1 k/uL (0-0.2); Basophils % (A) 1 %; Eosinophils # (A) 0.2 k/uL (0-0.7); Eosinophils % (A) 2 %; Lymphocytes % (A) 17 %; MCH 29.6 pg (25.0-35.0); MCHC 32.6 g/dL (31.0-37.0); MCV 90.8 fL (80.0-100.0); Mean Platelet Volume 7.2; Monocytes # (A) 0.6 k/uL (0-1.0); Monocytes % (A) 5 %; Neutrophils % (A) 74 %; Platelet Count 259 k/uL (150-450); RBC 5.07 m/uL (3.80-5.40); RDW 13.2 % (11.5-15.5); WBC 12.1 k/uL (3.8-10.6)
[2024-02-15 20:22] LABS: ALT 18 U/L (4-34); AST 19 U/L (14-36); African American GFR (CKD) >90 (>60 ml/min/1.73 sqM); Albumin 3.9 g/dL (3.5-5.0); Alkaline Phosphatase 51 U/L (38-126); Anion Gap 7 mmol/L; Blood Urea Nitrogen 14 mg/dL (7-17); Calcium 9.2 mg/dL (8.4-10.2); Carbon Dioxide 25 mmol/L (22-30); Chloride 102 mmol/L (98-107); Glucose 165 mg/dL (74-99); Non-African American GFR(CKD) 89 (>60 ml/min/1.73 sqM); Potassium 4.3 mmol/L (3.5-5.1); Sodium 134 mmol/L (137-145); Total Bilirubin 0.8 mg/dL (0.2-1.3); Total Protein 6.3 g/dL (6.3-8.2)
--- NOTE | 2024-02-15 21:06 | CT ---
EXAMINATION TYPE: CT abdomen pelvis w con DATE OF EXAM: 02/15/2024 8:59 PM COMPARISON: Previous PET CT study 08/08/2023. CLINICAL INDICATION: Female, 68 years old with history of abdominal pain; Pt states nausea, vomiting and diarrhea since Wednesday. Blood in stool starting yesterday. Bright red clots. Pt unable to raise ar ms due to rotator cuff issues. TECHNIQUE: Axial CT abdomen pelvis w con;Sagittal and coronal reformats were created on a separate w orkstation. Contrast used:100 ml mL of Isovue 300 with IV Contrast, (none if empty) Oral contrast used: without Oral Contrast (none if empty) CT DLP: 1969.6 mGycm, Automated exposure control for dose reduction was used. FINDINGS: LOWER CHEST: Unremarkable ABDOMEN LIVER: Diffusely hypoattenuating parenchyma. GALLBLADDER AND BILE DUCTS: The gallbladder is surgically absent. PANCREAS: Unremarkable. SPLEEN: Unremarkable. ADRENAL GLANDS: Unremarkable. KIDNEYS AND URETERS: No evidence of hydronephrosis or renal calculus. The ureters are unremarkable. PELVIS BLADDER: No evidence for wall thickening or mass given limitations of exam. REPRODUCTIVE: Uterus surgically absent. ABDOMEN & PELVIS STOMACH AND BOWEL: No evidence of small bowel obstruction. Colonic diverticulosis with wall thickenin g of the distal descending and sigmoid colon with adjacent mesenteric stranding stressing acute epigl ottitis. No pericolic abscess or evidence of free air to suggest perforation. PERITONEUM/RETROPERITONEUM: No evidence of pneumoperitoneum or free fluid. VASCULATURE: No evidence of aortic aneurysm. MUSCULOSKELETAL: No acute osseous abnormalities. Osseous structures demineralized. Multilevel lumbosa cral spine degenerative changes with Schmorl's node and endplate sclerosis. Sclerotic lesion involvin g the L5 vertebral body, possibly affecting a bone island. LYMPH NODES: No gross evidence for lymphadenopathy. SOFT TISSUE/ABDOMINAL WALL: Unremarkable IMPRESSION: Findings compatible with acute diverticulitis of the distal descending and sigmoid colon. No pericoli c abscess or evidence of free air to suggest perforation. [facility], , 02/15/2024 9:04 PM
[2024-02-15] MEDS ORDERED: ONDANSETRON 4 MG/2 ML VIAL IVP PRN (23:23)
[2024-02-15] MEDS ORDERED: MORPHINE SULFATE 4 MG/ML SYRINGE IVP PRN (23:23)
[2024-02-15] MEDS ORDERED: KETOROLAC 15 MG/ML 1 ML VIAL IVP PRN (23:23)
[2024-02-15 23:46] LABS: Appearance,Urine Clear (Clear); Bacteria,Urine Few /hpf; Bilirubin,Urine Negative (Negative); Blood,Urine Negative (Negative); Color,Urine Colorless; Glucose,Urine (UA) 4+ (Negative); Leukocyte Esterase,Urine Negative (Negative); Nitrite,Urine Positive (Negative); PH, Urine 5.5 (5.0-8.0); Protein,Urine Negative (Negative); RBC,Urine <1 /hpf (0-5); Squamous Epithelial Cell,Urine 1 /hpf (0-4); Urobilinogen,Urine <2.0 mg/dL (<2.0); WBC,Urine 2 /hpf (0-5)
[2024-02-15] MEDS ORDERED: NALOXONE 0.4 MG/ML 1 ML VIAL IV PRN (23:59)
[2024-02-16 00:03] LABS: Specific Gravity,Urine >1.050 (1.001-1.035)
[2024-02-16 00:04] LABS: Ketones,Urine 2+ (Negative)
[2024-02-16] MEDS: metroNIDAZOLE-NS PMX 500 MG in SALINE 1 100ML.BAG IVPB STA (00:05)
[2024-02-16] MEDS: SODIUM CHLORIDE 0.9% 1,000 ML IV SCH (00:06)
[2024-02-16 07:16] LABS: Glucose,Whole Blood 128 mg/dL (70-110)
[2024-02-16] MEDS: metroNIDAZOLE-NS PMX 500 MG in SALINE 1 100ML.BAG IVPB SCH (08:36)
[2024-02-16] MEDS ORDERED: DEXTROSE 50% SYRINGE 50 ML IVP PRN ×2 (12:41)
[2024-02-16] MEDS ORDERED: IPRATROPIUM-ALBUTEROL 3 ML NEB INHALATION PRN (12:43)
--- NOTE | 2024-02-16 12:51 | P.HPIM ---
History of Present Illness H&P Date: 02/16/24 Chief Complaint: Nausea ,vomiting, diarrhea and abdominal pain This is a 68-year-old female with past medical history significant for diverticulitis 40 years ago ,morbid obesity, multiple abdominal surgeries - appendectomy, , cholecystectomy, hysterectomy, asthma, diabetes mellitus-on Ozempic, gastroesophageal reflux disease, hypertension, hyperlipidemia, hypothyroid, melanoma removal off head, vertigo and multiple other medical issues presented to the ER with complaints of abdominal pain. Reports on Wednesday she developed nausea, vomiting and diarrhea accompanied by abdominal pain. By Wednesday developed blood in her diarrhea with nausea and vomiting subsiding. Wednesday consumed chicken noodle soup, chicken nuggets worsened abdominal pain and presented to the ER. Abdomen/pelvis CT reported findings compatible with diffusely hypoattenuating parenchyma of the liver ,acute diverticulitis of the distal descending and sigmoid colon, no pericolic abscess or evidence of free air to suggest perforation, sclerotic lesion involving the L5 vertebral body, possibly affecting a bone island, no gross evidence for lymphadenopathy. Afebrile, WBC 12.1, hemoglobin 15, platelets 259. Electrolytes and renal function within normal limits, glucose 165. Denies chest pain, palpitations or shortness of breath. Maintaining O2 sats in the 90s on room air. Troponin negative x 1. LFT limits, lipase 138. UA positive nitrates, negative leukocytes, 2 WBCs. Rocephin, Flagyl and IV fluids initiated in the ER. Review of Systems ROS Statement: Those systems with pertinent positive or pertinent negative responses have been documented in the HPI. ROS Other: All systems not noted in ROS Statement are negative. Past Medical History Past Medical History: Asthma, Cancer, Diabetes Mellitus, GERD/Reflux, Hyperlipidemia, Hypertension, Pneumonia, Thyroid Disorder Additional Past Medical History / Comment(s): IDDM, HX MELANOMA & LYMPH NODES, TORN LEFT ROTATOR CUFF, HX COLON POYPS, OAB, HAVING DIARRHEA. History of Any Multi-Drug Resistant Organisms: None Reported Past Surgical History: Appendectomy, Breast Surgery, Section, Cholecystectomy, Heart Catheterization, Hysterectomy, Orthopedic Surgery Additional Past Surgical History / Comment(s): BREAST REDUCTION; REMOVAL OF MELANOMA OFF TOP HEAD & REMOVED LYMPH NODE-6 ON EACH SIDE OF NECK ;L ANKLE FX & REPAIR., 4 lymph nodes at back of head removed. COLONOSCOPY, Past Anesthesia/Blood Transfusion Reactions: No Reported Reaction, Motion Sickn ess Additional Past Anesthesia/Blood Transfusion Reaction / Comment(s): HX VERTIGO Past Psychological History: No Psychological Hx Reported Smoking Status: Never smoker Past Alcohol Use History: None Reported Past Drug Use History: None Reported - Past Family History Mother Family Medical History: Cancer Additional Family Medical History / Comment(s): mother breast and bone, Father Family Medical History: Cancer Son(s) Family Medical History: Cancer Brother(s) Family Medical History: Cancer Sister(s) Family Medical History: Cancer Medications and Allergies Home Medications Medication Instructions Recorded Confirmed Type Citalopram Hydrobromide [CeleXA] 40 mg PO DAILY 09/05/13 02/16/24 History Levothyroxine Sodium [Synthroid] 50 mcg PO DAILY 09/05/13 02/16/24 History Lisinopril [Prinivil] 5 mg PO DAILY 09/05/13 02/16/24 History Montelukast [Singulair] 10 mg PO DAILY 09/05/13 02/16/24 History Insulin Aspart Prot/Insuln Asp 52 unit SQ BID 06/25/20 02/16/24 History [NovoLOG MIX 70-30 Flexpen] oxyBUTYnin chloride [Ditropan XL] 10 mg PO DAILY 06/25/20 02/16/24 History Albuterol Sulfate [Albuterol 2 puff PO RT-Q6H PRN 02/16/24 02/16/24 History Sulfate Hfa] Alendronate Sodium [Fosamax] 10 mg PO DAILY 02/16/24 02/16/24 History Brimonidine Tartrate [Alphagan P 1 drops BOTH EYES BID 02/16/24 02/16/24 History 0.2% Ophth Soln] Cholestyramine (with Sugar) 4 gm PO DAILY 02/16/24 02/16/24 History [Cholestyramine Packet] Clopidogrel [Plavix] 75 mg PO DAILY 02/16/24 02/16/24 History Dorzolamide-Timol 2.23%/0.68% 1 drop BOTH EYES BID 02/16/24 02/16/24 History [Cosopt] Empagliflozin [Jardiance] 10 mg PO DAILY 02/16/24 02/16/24 History Fluticasone/Umeclidin/Vilanter 1 puff INHALATION RT-DAILY 02/16/24 02/16/24 History [Trelegy Ellipta 100-62.5-25] Latanoprost [Latanoprost 0.005%] 1 drop BOTH EYES HS 02/16/24 02/16/24 History Naproxen Sodium 550 mg PO BID PRN 02/16/24 02/16/24 History Semaglutide [Ozempic] 2 mg SQ MO 02/16/24 02/16/24 History Allergies Allergy/AdvReac Type Severity Reaction Status Date / Time cayenne Allergy Rash/Hives Verified 02/16/24 07:19 codeine Allergy Nausea & Verified 02/16/24 07:19 Vomiting, Headache lemon [Lemon] Allergy Rash/Hives Verified 02/16/24 07:19 Sulfa (Sulfonamide Allergy Swelling Verified 02/16/24 07:19 Antibiotics) hoyt AdvReac Severe Diarrhea Verified 02/16/24 07:19 nickel AdvReac Unknown red skin Verified 02/16/24 07:19 coffee (Coffea arabica) AdvReac Diarrhea Verified 02/16/24 07:19 Jewelry AdvReac Unknown Red skin Uncoded 02/16/24 07:19 Physical Exam Vitals: Vital Signs Temp Pulse Resp BP Pulse Ox 02/16/24 07:36 97.8 F 02/16/24 07:11 58 L 18 117/78 92 L 02/16/24 01:53 60 18 126/79 94 L 02/15/24 18:48 98.6 F 69 18 104/71 95 Intake and Output 02/15/24 02/16/24 02/16/24 22:59 06:59 14:59 Other: Weight 98.883 kg PHYSICAL EXAM: VITAL SIGNS: [Reviewed] GENERAL: Morbidly obese elderly female, sitting up on stretcher, alert and oriented x 3, no acute distress HEENT: Atraumatic, normocephalic, conjunctivae normal. eyes normal. NECK: Supple, no JVD. No thyroid enlargement. No LNs CARDIOVASCULAR: S1, S2 regular. No murmur RESPIRATION: Unlimited, equal air entry, breath sounds diminished in the bases. ABDOMEN: Soft, nondistended, mild left lower quadrant tenderness. No guarding. no masses palpable. No ascites, No hepatosplenomegaly.Bowel sounds heard. LEGS: No edema. no swelling. NERVOUS SYSTEM: Cranial N 2-12 grossly normal. No focal deficits. Strength and sensation grossly intact. Skin: Warm and dry, no rash Results CBC & Chem 7: 02/15/24 20:07 02/15/24 20:07 Labs: Abnormal Lab Results - Last 24 Hours (Table) 02/15/24 02/15/24 02/15/24 Range/Units 20:07 20:07 23:14 WBC 12.1 H (3.8-10.6) k/uL Neutrophils # 9.0 H (1.3-7.7) k/uL Sodium 134 L (137-145) mmol/L Glucose 165 H (74-99) mg/dL POC Glucose (mg/dL) (70-110) mg/dL Ur Specific [place] >1.050 H (1.001-1.035) Urine Glucose (UA) 4+ H (Negative) Urine Ketones 2+ H (Negative) Urine Nitrite Positive H (Negative) Urine Bacteria Few H (None) /hpf 02/16/24 Range/Units 07:15 WBC (3.8-10.6) k/uL Neutrophils # (1.3-7.7) k/uL Sodium (137-145) mmol/L Glucose (74-99) mg/dL POC Glucose (mg/dL) 128 H (70-110) mg/dL Ur Specific [place] (1.001-1.035) Urine Glucose (UA) (Negative) Urine Ketones (Negative) Urine Nitrite (Negative) Urine Bacteria (None) /hpf Assessment and Plan Assessment: Acute diverticulitis of the distal descending and sigmoid colon, in a patient with left lower quadrant abdominal pain accompanied by nausea vomiting bloody diarrhea with a past medical history of multiple abdominal surgeries and prior episode of diverticulitis approximately 40 years ago, on Ozempic. Acute UTI Asthma, stable Diabetes mellitus, hemoglobin A1c pending Gastroesophageal reflux disease Hypothyroidism Hypertension Hyperlipidemia Morbid obesity, BMI 36 ..... And multiple other comorbidities Plan: Continue on current medication regimen ,monitoring and symptomatic treatment. NPO, maintain Rocephin, Flagyl and IV fluid hydration. General surgery consult in place with recommendations pending. NovoLog sliding scale, lower dose long-acting insulin as patient n.p.o. currently close monitoring of blood sugars. PPI in place for GI prophylaxis. The impression and plan of care has been dictated as directed. : I performed a history and examination of this patient, discussed the same with the dictator. I agree with the dictator's note ,documented as a scribe. Any additional findings or plans will be noted.
[2024-02-16] MEDS: INSULIN ASPART (NovoLOG) 100 UNIT/ML VIAL SQ SCH (12:56)
[2024-02-16] MEDS: INSULIN DETEMIR (LEVEMIR) 100 UNIT/ML SYR SQ SCH (13:11)
[2024-02-16] MEDS: BRIMONIDINE TARTRATE 0.2% DROPS 5 ML BTL BOTH EYES SCH (13:25)
[2024-02-16] MEDS: PANTOPRAZOLE 40 MG/10 ML VIAL IVP SCH (13:25)
[2024-02-16] MEDS: CLOPIDOGREL 75 MG TAB PO SCH (13:26)
[2024-02-16] MEDS: LEVOTHYROXINE 50 MCG TAB PO SCH (13:26)
[2024-02-16] MEDS: CITALOPRAM HYDROBROMIDE 20 MG TAB PO SCH (13:26)
[2024-02-16] MEDS: OXYBUTYNIN 10 MG TAB.ER.24 PO SCH (13:26)
[2024-02-16] MEDS: DORZOLAMIDE-TIMOLOL 2.23%/0.68 10ML BTL BOTH EYES SCH (13:26)
--- NOTE | 2024-02-16 14:20 | P.GSCN ---
History of Present Illness Consult date: 02/16/24 History of present illness: CHIEF COMPLAINT: Abdominal pain HISTORY OF PRESENT ILLNESS: This is a 68-year-old female who presented to hospital with complaints of left lower quadrant abdominal pain. Patient reports that the pain started on Wednesday and she had a little improvement after bowel movement. But then Wednesday pain increased greatly and she started having mu ltiple episodes of diarrhea as well as vomiting. Patient also reports passing some blood after the diarrhea. Patient reports having similar symptoms of left lower quadrant pain about 20 years ago and at that time diagnosed with diverticulitis. Her last colonoscopy was May 2020 that reported internal and external hemorrhoids and diverticulosis. Her CAT scan had shown evidence of acute diverticulitis. She has been started on antibiotics. She does have a past surgical history of appendectomy, cholecystectomy hysterectomy and cyst's 3 C-sections. She is scheduled for a heart catheterization outpatient on Wednesday with cardiology service. Patient seen and examined with Dr. Drake PAST MEDICAL HISTORY: Asthma, Melanoma, Diabetes Mellitus, GERD/Reflux, Hyperlipidemia, Hypertension, Pneumonia, Thyroid Disorder PAST SURGICAL HISTORY: Appendectomy, Breast Surgery, Section, Cholecystectomy, Heart Catheterization, Hysterectomy, Orthopedic Surgery MEDICATIONS: See below ALLERGIES: See below SOCIAL HISTORY: No illicit drug use. REVIEW OF SYSTEMS: CONSTITUTIONAL: Denies fever or chills. HEENT: Denies blurred vision, vision changes, or eye pain. Denies hemoptysis CARDIOVASCULAR: Denies chest pain or pressure. RESPIRATORY: No shortness of breath. GASTROINTESTINAL: See HPI for pertinent findings HEMATOLOGIC: Denies bleeding disorders. GENITOURINARY: Denies any blood in urine or increased urinary frequency. SKIN: Denies pruitis. Denies rash. PHYSICAL EXAM: VITAL SIGNS: Reviewed GENERAL: Well-developed in no acute distress. HEENT: No sclera icterus. Extraocular movements grossly intact. Moist buccal mucosa. Head is atraumatic, normocephalic. No nasal drainage. ABDOMEN: Soft. Nondistended. Tenderness palpation left lower quadrant NEUROLOGIC: Alert and oriented. Cranial nerves II through XII grossly intact. LABORATORY DATA: WBC 12.1 Hgb 15 platelets 259 Sodium 134 potassium 4.3 creatinine 0.68 IMAGING: CT scan abdomen pelvis reports findings compatible with acute diverticulitis of the distal descending and sigmoid colon. No abscess noted. No free air to suggest perforation. ASSESSMENT: 1. Acute diverticulitis of the distal descending and sigmoid colon PLAN: -Continue IV antibiotics -Advance diet to clear liquids -Continue pain management -Continue IV fluids Physician Continuous Process Coffee Roaster note has been reviewed by physician. Signing provider agrees with the documented findings, assessment, and plan of care. Past Medical History Past Medical History: Asthma, Cancer, Diabetes Mellitus, GERD/Reflux, Hyperlipidemia, Hypertension, Pneumonia, Thyroid Disorder Additional Past Medical History / Comment(s): IDDM, HX MELANOMA & LYMPH NODES, TORN LEFT ROTATOR CUFF, HX COLON POYPS, OAB, HAVING DIARRHEA. History of Any Multi-Drug Resistant Organisms: None Reported Past Surgical History: Appendectomy, Breast Surgery, Section, Cholecystectomy, Heart Catheterization, Hysterectomy, Orthopedic Surgery Additional Past Surgical History / Comment(s): BREAST REDUCTION; REMOVAL OF MELANOMA OFF TOP HEAD & REMOVED LYMPH NODE-6 ON EACH SIDE OF NECK ;L ANKLE FX & REPAIR., 4 lymph nodes at back of head removed. COLONOSCOPY, Past Anesthesia/Blood Transfusion Reactions: No Reported Reaction, Motion Sickness Additional Past Anesthesia/Blood Transfusion Reaction / Comm: HX VERTIGO Past Psychological History: No Psychological Hx Reported Smoking Status: Never smoker Past Alcohol Use History: None Reported Past Drug Use History: None Reported - Past Family History Mother Family Medical History: Cancer Additional Family Medical History / Comment(s): mother breast and bone, Father Family Medical History: Cancer Son(s) Family Medical History: Cancer Brother(s) Family Medical History: Cancer Sister(s) Family Medical History: Cancer Medications and Allergies Home Medications Medication Instructions Recorded Confirmed Type Citalopram Hydrobromide [CeleXA] 40 mg PO DAILY 09/05/13 02/16/24 History Levothyroxine Sodium [Synthroid] 50 mcg PO DAILY 09/05/13 02/16/24 History Lisinopril [Prinivil] 5 mg PO DAILY 09/05/13 02/16/24 History Montelukast [Singulair] 10 mg PO DAILY 09/05/13 02/16/24 History Insulin Aspart Prot/Insuln Asp 52 unit SQ BID 06/25/20 02/16/24 History [NovoLOG MIX 70-30 Flexpen] oxyBUTYnin chloride [Ditropan XL] 10 mg PO DAILY 06/25/20 02/16/24 History Albuterol Sulfate [Albuterol 2 puff PO RT-Q6H PRN 02/16/24 02/16/24 History Sulfate Hfa] Alendronate Sodium [Fosamax] 10 mg PO DAILY 02/16/24 02/16/24 History Brimonidine Tartrate [Alphagan P 1 drops BOTH EYES BID 02/16/24 02/16/24 History 0.2% Ophth Soln] Cholestyramine (with Sugar) 4 gm PO DAILY 02/16/24 02/16/24 History [Cholestyramine Packet] Clopidogrel [Plavix] 75 mg PO DAILY 02/16/24 02/16/24 History Dorzolamide-Timol 2.23%/0.68% 1 drop BOTH EYES BID 02/16/24 02/16/24 History [Cosopt] Empagliflozin [Jardiance] 10 mg PO DAILY 02/16/24 02/16/24 History Fluticasone/Umeclidin/Vilanter 1 puff INHALATION RT-DAILY 02/16/24 02/16/24 History [Trelegy Ellipta 100-62.5-25] Latanoprost [Latanoprost 0.005%] 1 drop BOTH EYES HS 02/16/24 02/16/24 History Naproxen Sodium 550 mg PO BID PRN 02/16/24 02/16/24 History Semaglutide [Ozempic] 2 mg SQ MO 02/16/24 02/16/24 History Allergies Allergy/AdvReac Type Severity Reaction Status Date / [facility] Rash/Hives Verified 02/16/24 07:19 codeine Allergy Nausea & Verified 02/16/24 07:19 Vomiting, Headache lemon [Lemon] Allergy Rash/Hives Verified 02/16/24 07:19 Sulfa (Sulfonamide Allergy Swelling Verified 02/16/24 07:19 Antibiotics) hoyt AdvReac Severe Diarrhea Verified 02/16/24 07:19 nickel AdvReac Unknown red skin Verified 02/16/24 07:19 coffee (Coffea arabica) AdvReac Diarrhea Verified 02/16/24 07:19 Jewelry AdvReac Unknown Red skin Uncoded 02/16/24 07:19 Surgical - Exam Vital Signs Temp Pulse Resp BP Pulse Ox 98.6 F 69 18 104/71 95 02/15/24 18:48 02/15/24 18:48 02/15/24 18:48 02/15/24 18:48 02/15/24 18:48 Results - Labs 02/15/24 20:07 02/15/24 20:07 Abnormal Lab Results - Last 24 Hours (Table) 02/15/24 02/15/24 02/15/24 Range/Units 20:07 20:07 23:14 WBC 12.1 H (3.8-10.6) k/uL Neutrophils # 9.0 H (1.3-7.7) k/uL Sodium 134 L (137-145) mmol/L Glucose 165 H (74-99) mg/dL POC Glucose (mg/dL) (70-110) mg/dL Ur Specific [place] >1.050 H (1.001-1.035) Urine Glucose (UA) 4+ H (Negative) Urine Ketones 2+ H (Negative) Urine Nitrite Positive H (Negative) Urine Bacteria Few H (None) /hpf 02/16/24 Range/Units 07:15 WBC (3.8-10.6) k/uL Neutrophils # (1.3-7.7) k/uL Sodium (137-145) mmol/L Glucose (74-99) mg/dL POC Glucose (mg/dL) 128 H (70-110) mg/dL Ur Specific [place] (1.001-1.035) Urine Glucose (UA) (Negative) Urine Ketones (Negative) Urine Nitrite (Negative) Urine Bacteria (None) /hpf Diabetes panel 02/15/24 Range/Units 20:07 Sodium 134 L (137-145) mmol/L Potassium 4.3 (3.5-5.1) mmol/L Chloride 102 (98-107) mmol/L Carbon Dioxide 25 (22-30) mmol/L BUN 14 (7-17) mg/dL Creatinine 0.68 (0.52-1.04) mg/dL Glucose 165 H (74-99) mg/dL Calcium 9.2 (8.4-10.2) mg/dL AST 19 (14-36) U/L ALT 18 (4-34) U/L Alkaline Phosphatase 51 (38-126) U/L Total Protein 6.3 (6.3-8.2) g/dL Albumin 3.9 (3.5-5.0) g/dL Calcium panel 02/15/24 Range/Units 20:07 Calcium 9.2 (8.4-10.2) mg/dL Albumin 3.9 (3.5-5.0) g/dL Pituitary panel 02/15/24 Range/Units 20:07 Sodium 134 L (137-145) mmol/L Potassium 4.3 (3.5-5.1) mmol/L Chloride 102 (98-107) mmol/L Carbon Dioxide 25 (22-30) mmol/L BUN 14 (7-17) mg/dL Creatinine 0.68 (0.52-1.04) mg/dL Glucose 165 H (74-99) mg/dL Calcium 9.2 (8.4-10.2) mg/dL Adrenal panel 02/15/24 Range/Units 20:07 Sodium 134 L (137-145) mmol/L Potassium 4.3 (3.5-5.1) mmol/L Chloride 102 (98-107) mmol/L Carbon Dioxide 25 (22-30) mmol/L BUN 14 (7-17) mg/dL Creatinine 0.68 (0.52-1.04) mg/dL Glucose 165 H (74-99) mg/dL Calcium 9.2 (8.4-10.2) mg/dL Total Bilirubin 0.8 (0.2-1.3) mg/dL AST 19 (14-36) U/L ALT 18 (4-34) U/L Alkaline Phosphatase 51 (38-126) U/L Total Protein 6.3 (6.3-8.2) g/dL Albumin 3.9 (3.5-5.0) g/dL
[2024-02-16] MEDS: SYMBICORT 80-4.5 MCG INHALER INHALATION SCH (16:27)
[2024-02-16] MEDS: IPRATROPIUM-ALBUTEROL 3 ML NEB INHALATION SCH (16:31)
[2024-02-16 17:28] LABS: Glucose,Whole Blood 119 mg/dL (70-110)
[2024-02-16] MEDS ORDERED: MONTELUKAST 10 MG TAB PO SCH (21:00)
[2024-02-16] MEDS: LATANOPROST 0.005% OPHTH DROPS 2.5 ML BTL BOTH EYES SCH (21:25)
[2024-02-17 00:16] LABS: Glucose,Whole Blood 140 mg/dL (70-110)
[2024-02-17 06:09] LABS: Glucose,Whole Blood 137 mg/dL (70-110)
[2024-02-17] MEDS: MONTELUKAST 10 MG TAB PO SCH (08:01)
[2024-02-17 08:50] LABS: Basophils # (A) 0.08 X 10*3/uL (0.00-0.10); Basophils % (A) 1.2 %; HCT 45.1 % (37.2-46.3); HGB 14.3 g/dL (12.0-15.0); Lymphocytes # (A) 1.46 X 10*3/uL (0.90-5.00); Lymphocytes % (A) 21.8 %; MCH 28.8 pg (27.0-32.0); MCHC 31.7 g/dL (32.0-37.0); MCV 90.9 FL (80.0-97.0); Mean Platelet Volume 10.5 FL (9.5-12.2); Monocytes # (A) 0.56 X 10*3/uL (0.20-1.00); Monocytes % (A) 8.4 %; NRBC Per 100 WBC 0 X 10*3/uL (0.00-0.01); Neutrophils # (A) 4.16 X 10*3/uL (1.80-7.70); Neutrophils % (A) 62.2 %; Platelet Count 264 X 10*3/uL (140-440); RBC 4.96 X 10*6/uL (4.10-5.20); RDW 13.1 % (11.5-14.5); WBC 6.69 X 10*3/uL (4.50-10.00)
[2024-02-17 11:56] LABS: Glucose,Whole Blood 191 mg/dL (70-110)
--- NOTE | 2024-02-17 13:24 | P.PN ---
Subjective Progress Note Date: 02/17/24 SURGICAL PROGRESS NOTE CHIEF COMPLAINT: Diverticulitis HISTORY OF PRESENT ILLNESS: Patient reports her pain has improved. She does report diarrhea. She is tolerating clear liquids. Afebrile. WBC is 6.69 Hgb 14.3 platelets 264 Patient seen and examined with Dr. Drake PHYSICAL EXAM: VITAL SIGNS: Reviewed. GENERAL: Well-developed in no acute distress. ABDOMEN: Soft. Nondistended. Nontender. NEUROLOGIC: Alert and oriented. Cranial nerves II through XII grossly intact. ASSESSMENT: 1. Acute diverticulitis of the distal descending and sigmoid colon PLAN: -Advance diet to full liquids and then as tolerated -Continue IV antibiotics -Anticipate discharge possibly tomorrow Physician Assistant Casino Shift Manager note has been reviewed by physician. Signing provider agrees with the documented findings, assessment, and plan of care. Objective - Vital Signs Vital signs: Vital Signs Temp 97.8 F 02/17/24 07:00 Pulse 70 02/17/24 12:32 Resp 16 02/17/24 07:00 BP 138/84 02/17/24 07:00 Pulse Ox 96 02/17/24 07:00 FiO2 Intake & Output 02/16/24 02/17/24 02/17/24 18:59 06:59 18:59 Intake Total 0 118 Balance 0 118 Weight 98.883 kg Intake: Oral 0 118 Other: Voiding Method Toilet Toilet # Voids 1 - Labs CBC & Chem 7: 02/17/24 05:52 02/15/24 20:07 Labs: Abnormal Lab Results - Last 24 Hours (Table) 02/16/24 02/17/24 02/17/24 Range/Units 17:27 00:15 05:52 MCHC (32.0-37.0) g/dL Eosinophils # (0.04-0.35) X 10*3/uL POC Glucose (mg/dL) 119 H 140 H (70-110) mg/dL Hemoglobin A1c 8.1 H (<=6.0) % 02/17/24 02/17/24 02/17/24 Range/Units 05:52 06:08 11:54 MCHC 31.7 L (32.0-37.0) g/dL Eosinophils # 0.40 H (0.04-0.35) X 10*3/uL POC Glucose (mg/dL) 137 H 191 H (70-110) mg/dL Hemoglobin A1c (<=6.0) %
--- NOTE | 2024-02-17 16:29 | P.PN ---
Subjective Progress Note Date: 02/17/24 H&P Date: 02/16/24 Chief Complaint: Nausea ,vomiting, diarrhea and abdominal pain This is a 68-year-old female with past medical history significant for dive rticulitis 40 years ago ,morbid obesity, multiple abdominal surgeries - appendectomy, , cholecystectomy, hysterectomy, asthma, diabetes mellitus-on Ozempic, gastroesophageal reflux disease, hypertension, hyperlipidemia, hypothyroid, melanoma removal off head, vertigo and multiple other medical issues presented to the ER with complaints of abdominal pain. Reports on Wednesday she developed nausea, vomiting and diarrhea accompanied by abdominal pain. By Wednesday developed blood in her diarrhea with nausea and vomiting subsiding. Wednesday consumed chicken noodle soup, chicken nuggets worsened abdominal pain and presented to the ER. Abdomen/pelvis CT reported findings compatible with diffusely hypoattenuating parenchyma of the liver ,acute diverticulitis of the distal descending and sigmoid colon, no pericolic abscess or evidence of free air to suggest perforation, sclerotic lesion involving the L5 vertebral body, possibly affecting a bone island, no gross evidence for lymphadenopathy. Afebrile, WBC 12.1, hemoglobin 15, platelets 259. Electrolytes and renal function within normal limits, glucose 165. Denies chest pain, palpitations or shortness of breath. Maintaining O2 sats in the 90s on room air. Troponin negative x 1. LFT limits, lipase 138. UA positive nitr ates, negative leukocytes, 2 WBCs. Rocephin, Flagyl and IV fluids initiated in the ER. 02/17/2024 maintained on IV fluid hydration, antibiotics and clear liquid diet. Denies abdominal pain. Denies nausea, vomiting. Reports no bowel movement since admission. Ambulated to bathroom, tolerated exertion well. Denies chest pain, palpitations or shortness of breath. Maintaining O2 sats in the high 90s on room air. AFebrile, normal WBC. Hemoglobin stable. Hemoglobin A1c 8.1. Blood sugars controlled. Objective - Vital Signs Vital signs: Vital Signs Temp 97.4 F L 02/17/24 14:12 Pulse 72 02/17/24 16:13 Resp 17 02/17/24 14:12 BP 117/85 02/17/24 14:12 Pulse Ox 99 02/17/24 14:12 FiO2 Intake & Output 02/16/24 02/17/24 02/17/24 18:59 06:59 18:59 Intake Total 0 118 Balance 0 118 Weight 98.883 kg Intake: Oral 0 118 Other: Voiding Method Toilet Toilet # Voids 1 - Exam PHYSICAL EXAM: VITAL SIGNS: [Reviewed] GENERAL: Morbidly obese elderly female, sitting up in bed, alert and oriented x 3, no acute distress HEENT: Atraumatic, normocephalic, conjunctivae normal. eyes normal.MMM. NECK: Supple, no JVD. CARDIOVASCULAR: S1, S2 regular. No murmur RESPIRATION: Unlimited, equal air entry, essentially clear to auscultation, breath sounds diminished in the bases. ABDOMEN: Soft, nondistended, minimal left lower quadrant tenderness. No guarding. +BS LEGS: No edema. no swelling. NERVOUS SYSTEM: Cranial N 2-12 grossly normal. No focal deficits. Strength and sensation grossly intact. Skin: Warm and dry, no rash - Labs CBC & Chem 7: 02/17/24 05:52 02/15/24 20:07 Labs: Abnormal Lab Results - Last 24 Hours (Table) 02/16/24 02/17/24 02/17/24 Range/Units 17:27 00:15 05:52 MCHC (32.0-37.0) g/dL Eosinophils # (0.04-0.35) X 10*3/uL POC Glucose (mg/dL) 119 H 140 H (70-110) mg/dL Hemoglobin A1c 8.1 H (<=6.0) % 02/17/24 02/17/24 02/17/24 Range/Units 05:52 06:08 11:54 MCHC 31.7 L (32.0-37.0) g/dL Eosinophils # 0.40 H (0.04-0.35) X 10*3/uL POC Glucose (mg/dL) 137 H 191 H (70-110) mg/dL Hemoglobin A1c (<=6.0) % Assessment and Plan Assessment: Acute diverticulitis of the distal descending and sigmoid colon, in a patient with left lower quadrant abdominal pain accompanied by nausea vomiting bloody diarrhea with a past medical history of multiple abdominal surgeries and prior episode of diverticulitis approximately 40 years ago, on Ozempic. Acute UTI Asthma, stable Diabetes mellitus, hemoglobin A1c 8.1. Further diabetic teaching, outpatient in office with PCP Gastroesophageal reflux disease Hypothyroidism Hypertension Hyperlipidemia Morbid obesity, BMI 36 ..... And multiple other comorbidities Plan: Continue on current medication regimen ,monitoring and symptomatic treatment.Maintain Rocephin, Flagyl and IV fluid hydration. Diabetic teaching, close monitoring of Accu-Cheks. Discharge planning in progress for tomorrow pending tolerating diet advancement, final DC recommendations and clearance per general surgery. The impression and plan of care has been dictated as directed. : I performed a history and examination of this patient, discussed the same with the dictator. I agree with the dictator's note ,documented as a scribe. Any additional findings or plans will be noted.
[2024-02-17 17:16] LABS: Glucose,Whole Blood 148 mg/dL (70-110)
[2024-02-17 22:58] LABS: Glucose,Whole Blood 157 mg/dL (70-110)
[2024-02-18 05:43] LABS: Glucose,Whole Blood 138 mg/dL (70-110)
[2024-02-18 07:05] VITALS: BP 144/76; RESP 17; TEMP 98.3
[2024-02-18 08:20] VITALS: PULSE 76
--- NOTE | 2024-02-18 10:14 | P.PN ---
Subjective Progress Note Date: 02/18/24 SURGICAL PROGRESS NOTE CHIEF COMPLAINT: Diverticulitis HISTORY OF PRESENT ILLNESS: Patient denies any abdominal pain. She denies any nausea or vomiting. She is tolerating regular diet. Afebrile. PHYSICAL EXAM: VITAL SIGNS: Reviewed. GENERAL: Well-developed in no acute distress. ABDOMEN: Soft. Nondistended. Nontender. NEUROLOGIC: Alert and oriented. Cranial nerves II through XII grossly intact. ASSESSMENT: 1. Acute diverticulitis of the distal descending and sigmoid colon resolved with medical management PLAN: -Patient can be discharged from surgical standpoint -Discharge antibiotics per medicine service Physician Oil Spraying Machine Operator note has been reviewed by physician. Signing provider agrees with the documented findings, assessment, and plan of care. Objective - Vital Signs Vital signs: Vital Signs Temp 98.3 F 02/18/24 07:00 Pulse 76 02/18/24 08:19 Resp 17 02/18/24 07:00 BP 144/76 02/18/24 07:00 Pulse Ox 97 02/18/24 07:00 FiO2 Intake & Output 02/17/24 02/18/24 02/18/24 18:59 06:59 18:59 Intake Total 236 Balance 236 Intake: Oral 236 Other: # Voids 3 2 # Bowel Movements 1 - Labs CBC & Chem 7: 02/17/24 05:52 02/15/24 20:07 Labs: Abnormal Lab Results - Last 24 Hours (Table) 02/17/24 02/17/24 02/17/24 Range/Units 05:52 11:54 17:15 POC Glucose (mg/dL) 191 H 148 H (70-110) mg/dL Hemoglobin A1c 8.1 H (<=6.0) % 02/17/24 02/18/24 Range/Units 22:56 05:41 POC Glucose (mg/dL) 157 H 138 H (70-110) mg/dL Hemoglobin A1c (<=6.0) %
--- NOTE | 2024-02-18 15:17 | P.DS ---
Providers Date of admission: 02/15/24 23:43 Expected date of discharge: 02/18/24 Attending physician: Alan Lopez MD Consults: 02/16/24 09:47 Consult Physician Routine Consulting Provider: Chema Drake Consult Reason/Comments: diverticulitis Do you want consulting provider notified?: Already Contacted Primary care physician: Anna Lopez [facility] Course: Final Diagnoses: Acute diverticulitis of the distal descending and sigmoid colon, in a patient with left lower quadrant abdominal pain accompanied by nausea vomiting bloody diarrhea with a past medical history of multiple abdominal surgeries and prior episode of diverticulitis approximately 40 years ago, on Ozempic. Acute UTI Asthma, stable Diabetes mellitus, hemoglobin A1c 8.1. Further diabetic teaching, outpatient in office with PCP Gastroesophageal reflux disease Hypothyroidism Hypertension Hyperlipidemia Morbid obesity, BMI 36 ..... And multiple other comorbidities Hospital course:This is a 68-year-old female with past medical history significant for diverticulitis 40 years ago ,morbid obesity, multiple abdominal surgeries -appendectomy, , cholecystectomy, hysterectomy, asthma, diabetes mellitus-on Ozempic, gastroesophageal reflux disease, hypertension, hyperlipidemia, hypothyroid, melanoma removal off head, vertigo and multiple other medical issues presented to the ER with complaints of abdominal pain. Reports on Wednesday she developed nausea, vomiting and diarrhea accompanied by abdominal pain. By Wednesday developed blood in her diarrhea with nausea and vomiting subsiding. Wednesday consumed chicken noodle soup, chicken nuggets worsened abdominal pain and presented to the ER. Abdomen/pelvis CT reported findings compatible with diffusely hypoattenuating parenchyma of the liver ,acute diverticulitis of the distal descending and sigmoid colon, no pericolic abscess or evidence of free air to suggest perforation, sclerotic lesion invo lving the L5 vertebral body, possibly affecting a bone island, no gross evidence for lymphadenopathy. Afebrile, WBC 12.1, hemoglobin 15, platelets 259. Electrolytes and renal function within normal limits, glucose 165. Denies chest pain, palpitations or shortness of breath. Maintaining O2 sats in the 90s on room air. Troponin negative x 1. LFT limits, lipase 138. UA positive nitrates, negative leukocytes, 2 WBCs. Rocephin, Flagyl and IV fluids initiated in the ER. 02/17/2024 maintained on IV fluid hydration, antibiotics and clear liquid diet. Denies abdominal pain. Denies nausea, vomiting. Reports no bowel movement since admission. Ambulated to bathroom, tolerated exertion well. Denies chest pain, palpitations or shortness of breath. Maintaining O2 sats in the high 90s on room air. AFebrile, normal WBC. Hemoglobin stable. Hemoglobin A1c 8.1. Blood sugars controlled. 02/18/2024 maintained on ceftriaxone and Flagyl .tolerated diet advancement. Denies nausea vomiting or diarrhea. Denies abdominal pain. Denies chest pain, palpitations or shortness of breath. Denies lightheadedness, dizziness or focal deficits. Patient has been cleared by general surgery for discharge. Patient we discharged home today in a stable condition with guarded prognosis. The impression and plan of care has been dictated as directed. : I performed a history and examination of this patient, discussed the same with the dictator. I agree with the dictator's note ,documented as a scribe. Any additional findings or plans will be noted. Patient Condition at Discharge: Stable Plan - Discharge Summary Discharge Rx Participant: No New Discharge Prescriptions: New cefuroxime axetiL [Ceftin] 500 mg PO BID #16 tab metroNIDAZOLE [Flagyl] 500 mg PO TID #24 tab Continue Citalopram Hydrobromide [CeleXA] 40 mg PO DAILY Montelukast [Singulair] 10 mg PO DAILY Lisinopril [Prinivil] 5 mg PO DAILY Levothyroxine Sodium [Synthroid] 50 mcg PO DAILY oxyBUTYnin chloride [Ditropan XL] 10 mg PO DAILY Alendronate Sodium [Fosamax] 10 mg PO DAILY Albuterol Sulfate [Albuterol Sulfate Hfa] 2 puff PO RT-Q6H PRN PRN Reason: Shortness Of Breath Brimonidine Tartrate [Alphagan P 0.2% Ophth Soln] 1 drops BOTH EYES BID Fluticasone/Umeclidin/Vilanter [Trelegy Ellipta 100-62.5-25] 1 puff INHALATION RT-DAILY Clopidogrel [Plavix] 75 mg PO DAILY Cholestyramine (with Sugar) [Cholestyramine Packet] 4 gm PO DAILY Dorzolamide-Timol 2.23%/0.68% [Cosopt] 1 drop BOTH EYES BID Insulin Aspart Prot/Insuln Asp [NovoLOG MIX 70-30 Flexpen] 52 unit SQ BID Latanoprost [Latanoprost 0.005%] 1 drop BOTH EYES HS Empagliflozin [Jardiance] 10 mg PO DAILY Naproxen Sodium 550 mg PO BID PRN PRN Reason: Pain Semaglutide [Ozempic] 2 mg SQ MO Discharge Medication List Citalopram Hydrobromide [CeleXA] 40 mg PO DAILY 09/05/13 [History] Levothyroxine Sodium [Synthroid] 50 mcg PO DAILY 09/05/13 [History] Lisinopril [Prinivil] 5 mg PO DAILY 09/05/13 [History] Montelukast [Singulair] 10 mg PO DAILY 09/05/13 [History] Insulin Aspart Prot/Insuln Asp [NovoLOG MIX 70-30 Flexpen] 52 unit SQ BID 06/25/20 [History] oxyBUTYnin chloride [Ditropan XL] 10 mg PO DAILY 06/25/20 [History] Albuterol Sulfate [Albuterol Sulfate Hfa] 2 puff PO RT-Q6H PRN 02/16/24 [History] Alendronate Sodium [Fosamax] 10 mg PO DAILY 02/16/24 [History] Brimonidine Tartrate [Alphagan P 0.2% Oph Soln] 1 drops BOTH EYES BID 02/16/24 [History] Cholestyramine (with Sugar) [Cholestyramine Packet] 4 gm PO DAILY 02/16/24 [History] Clopidogrel [Plavix] 75 mg PO DAILY 02/16/24 [History] Dorzolamide-Timol 2.23%/0.68% [Cosopt] 1 drop BOTH EYES BID 02/16/24 [History] Empagliflozin [Jardiance] 10 mg PO DAILY 02/16/24 [History] Fluticasone/Umeclidin/Vilanter [Trelegy Ellipta 100-62.5-25] 1 puff INHALATION RT-DAILY 02/16/24 [History] Latanoprost [Latanoprost 0.005%] 1 drop BOTH EYES HS 02/16/24 [History] Naproxen Sodium 550 mg PO BID PRN 02/16/24 [History] Semaglutide [Ozempic] 2 mg SQ MO 02/16/24 [History] cefuroxime axetiL [Ceftin] 500 mg PO BID #16 tab 02/18/24 [Rx] metroNIDAZOLE [Flagyl] 500 mg PO TID #24 tab 02/18/24 [Rx] Follow up Appointment(s)/Referral(s): Anna Lopez DO [Primary Care Provider] - 1 Week Chema Drake MD [STAFF PHYSICIAN] - 1 Week Patient Instructions/Handouts: Diverticulitis (DC) Discharge Disposition: HOME SELF-CARE
== END 2024-02-18 11:30 | disposition home or self-care (01) ==
LOC: EC 18:04 → INTOOBSV 23:43 → 6NMEDSUR 23:43
PROVIDERS: ADMIT Family Medicine; ATTEND Family Medicine
DX: K57.33 Diverticulitis of large intestine without perforation or abscess with bleeding (principal); N39.0 Urinary tract infection, site not specified; J45.909 Unspecified asthma, uncomplicated; E11.9 Type 2 diabetes mellitus without complications; K21.9 Gastro-esophageal reflux disease without esophagitis; E03.9 Hypothyroidism, unspecified; I10 Essential (primary) hypertension; E78.5 Hyperlipidemia, unspecified; N32.81 Overactive bladder; E66.01 Morbid (severe) obesity due to excess calories; Z68.36 Body mass index [BMI] 36.0-36.9, adult; Z79.02 Long term (current) use of antithrombotics/antiplatelets; Z79.4 Long term (current) use of insulin; Z79.82 Long term (current) use of aspirin; Z79.83 Long term (current) use of bisphosphonates; Z79.84 Long term (current) use of oral hypoglycemic drugs; Z79.890 Hormone replacement therapy; Z90.49 Acquired absence of other specified parts of digestive tract; Z90.710 Acquired absence of both cervix and uterus; Z79.899 Other long term (current) drug therapy; Z88.5 Allergy status to narcotic agent; Z88.2 Allergy status to sulfonamides
CPT/HCPCS: 96376 ×2; 96366 ×4; 96375; 96365; 96367; 99285; 36415; 94640 ×6; 80053; 83690; 84484; 85025 ×2; 85730; 81001; 83036; 74177; G0378 ×3; J0696 ×4; Q9967; J1836 ×3; J2470 ×3

== ENCOUNTER → 2024-02-21 | Outpatient (CLI) | payer MEDICARE, OTHER ==
--- NOTE | 2024-02-24 12:53 | MM ---
Reason for Exam: Screening (asymptomatic). Last mammogram was performed 1 year(s) and 11 month(s) ago. Patient History: Menarche at age 10. Bilateral Reduction. Excisional Biopsy on the Right side. Mother had breast cancer. Risk Values: Sade 5 year model risk: 3.8%. NCI Lifetime model risk: 10.8%. Prior Study Comparison: 10/25/1998 Bilateral Screening Mammogram, [facility]. 12/08/1999 Bilateral Special View Mammogram, [facility]. 11/07/2019 Bilateral Screening Mammogram, Unknown. 03/27/2022 Bilateral Screening Mammogram, Unknown. Tissue Density: There are scattered areas of fibroglandular density. Findings: Analyzed By CAD. Subareolar asymmetric density left CC view is unchanged. A few scattered benign rounded punctate and oil cyst calcifications are unchanged. There is no suspicious group of microcalcifications or new suspicious mass in either breast. Overall Assessment: Benign, BI-RAD 2 Management: Screening Mammogram of both breasts in 1 year. See note below in regards to patient's increased 5 year Sade score. Patient should continue monthly self-breast exams. A clinical breast exam by your physician is recommended on an annual basis. This exam should not preclude additional follow-up of suspicious palpable abnormalities. Note on Sade scores and lifetime risk: 1. A Sade score greater than 3% is considered moderate risk. If this is the case, consider specialist referral to assess eligibility for a risk reducing agent. 2. If overall lifetime risk for the development of breast cancer is 20% or higher, the patient may qualify for future screening with alternating mammogram and breast MRI. [facility], , 02/24/2024 12:50 PM. Electronically signed and approved by: Rasheed Sylvester M.D. Radiologist
== END | disposition home or self-care (01) ==
LOC: RADMAMWWP 12:42
PROVIDERS: ATTEND Family Medicine
DX: Z12.31 Encounter for screening mammogram for malignant neoplasm of breast (principal); Z80.3 Family history of malignant neoplasm of breast; R92.323 Mammographic fibroglandular density, bilateral breasts
CPT/HCPCS: 77063; 77067

== ENCOUNTER → 2024-05-25 | Outpatient (CLI) | payer MEDICARE, OTHER ==
[2024-05-25 19:11] LABS: Blood Urea Nitrogen 15.7 mg/dL (9.0-27.0); Chloride 100 mmol/L (96-109); HCT 47.2 % (37.2-46.3); HGB 15.5 g/dL (12.0-15.0); MCH 29.9 pg (27.0-32.0); MCHC 32.8 g/dL (32.0-37.0); MCV 90.9 FL (80.0-97.0); NRBC Per 100 WBC 0 X 10*3/uL (0.00-0.01); Platelet Count 278 X 10*3/uL (140-440); Potassium 4.7 mmol/L (3.5-5.5); RBC 5.19 X 10*6/uL (4.10-5.20); RDW 12.8 % (11.5-14.5); Sodium 137 mmol/L (135-145); WBC 8.44 X 10*3/uL (4.50-10.00)
== END | disposition home or self-care (01) ==
LOC: LABWHC1 15:15
PROVIDERS: ATTEND Internal Medicine Interventional Cardiology
DX: Z01.812 Encounter for preprocedural laboratory examination (principal); R94.39 Abnormal result of other cardiovascular function study; R06.02 Shortness of breath
CPT/HCPCS: 80051; 82565; 84520; 85027

== ENCOUNTER 2024-05-31 06:10 | Day surgery (SDC) | payer MEDICARE, OTHER ==
[~2024-05-31 06:10] MED LIST changes: +ALPRAZolam 0.25 MG TAB PO PRN; +ALPRAZolam 0.5 MG TAB PO PRN; -LACTATED RINGERS 1,000 ML IV SCH; +NITROGLYCERIN SL TABS 0.4 MG TAB SUBLINGUAL PRN
[2024-05-31 06:47] VITALS: RESP 16; TEMP 98
[2024-05-31 06:50] LABS: Glucose,Whole Blood 211 mg/dL (70-110)
[2024-05-31] MEDS: SODIUM CHLORIDE 0.9% 1,000 ML in EMPTY BAG 1 BAG IV SCH (06:57)
[2024-05-31] MEDS: ASPIRIN 325 MG TAB PO STA (06:57)
[2024-05-31] MEDS: INSULIN LISPRO (HumaLOG) 100 UNIT/ML 10 mL VL SQ ONE (06:58)
[2024-05-31] MEDS: ATORVASTATIN 80 MG TAB PO STA (06:58)
[2024-05-31] MEDS: IV FLUID CONTINUATION 1,000 ML IV ONE (07:08)
[2024-05-31] MEDS: LIDOCAINE 1% INJ 10MG/ML (20 ML MDV) SQ ONE (07:34)
[2024-05-31] MEDS: fentaNYL (PF) 50 MCG/1 ML VIAL IVP ONE (07:34)
[2024-05-31] MEDS: VERAPAMIL SYRINGE (5 MG/10 ML) INTRAARTER ONE (07:35)
[2024-05-31] MEDS: MIDAZOLAM 2 MG/2 ML VIAL IVP ONE (07:35)
[2024-05-31] MEDS: HEPARIN SODIUM 1,000 UN/ML (10ML VL) IVP ONE (07:41)
[2024-05-31] MEDS: IOPAMIDOL-370 100ML BTL INJ ONE (07:44)
[2024-05-31] MEDS: HEPARIN SODIUM,PORCINE 10,000 UNIT in SODIUM CHLORIDE 0.9% 1,000 ML IRRIGATION PRN (07:44)
[2024-05-31] MEDS: HEPARIN SODIUM,PORCINE (1 ML) 2,500 UNIT in SODIUM CHLORIDE 0.9% 250 ML IRRIGATION PRN (07:45)
[2024-05-31] MEDS ORDERED: RX INFO: IV CONTRAST WAS GIVEN 1 EACH MISC MISCELLANE PRN (07:54)
--- NOTE | 2024-05-31 07:59 | P.CARDCATH ---
Date of Procedure: 05/31/24 Description of Procedure: Cardiac Catheterization: The patient is a 68-year-old female with known history of hypertension, hyperlipidemia, diabetes who has been complaining of dyspnea on exertion and had an abnormal MPI. Recommendations were made regarding cardiac catheterization, the risks and the complications were discussed with the patient who is in full understanding and agreement. Procedure Description: Patient was brought to [employer] in fasting semi-sedated state after receiving Fentanyl and Benadryl achieiving moderate conscious sedated state. Using Xylocaine Anesthesia and modified Seldinger technique, a 6-Swiss sheath was introduced in the right radial artery . Subsequently, selective coronary angiography was performed using a 5-Swiss 3.5 bend Carlos catheter. Multiple views of the coronary artery including hemiaxial views were obtained. The right Carlos catheter was used to cross the aortic valve and LVEDP was calculated. Following that, catheter and sheath were removed. Hemostasis was obtained with deployment of vascular band . There was no immediate complication. Patient was returned to room in stable condition. Of note, the patient received a total of 5000 units of intravenous heparin as well as intra-arterial verapamil. Findings: Left main: This is a short size vessel, bifurcating into LAD and left circumflex, left main has no obstructive disease LAD: This is a large size vessel, reaching to the apex, giving rise to 2 moderately size diagonal branch. In the mid LAD after the takeoff of the diagonal branch there is a 20 to 30% eccentric lesion, the rest of the vessel has no high-grade stenosis Left circumflex: This is a large nondominant vessel giving rise to a large branching obtuse marginal branch that has no evidence of obstructive disease RCA: This is a large dominant vessel, bifurcating distally to PDA and PLV the proximal RCA has 20 to 30% plaque without any evidence of high-grade stenosis. Left Ventriculogram: Not performed Hemodynamics: There was no gradient across the aortic valve, LVEDP was 10-12 mmHg Conclusion: 1. Mild obstructive disease in the LAD and right coronary artery 2. Right dominance 3. Normal LVEDP Recommendations: I have recommended to continue medical therapy with the aggressive coronary risks modification initiated. The findings and the recommendations were discussed with the patient and the family and they were in full understanding and agreement. Duration of sedation is 12 minutes.
[2024-05-31] MEDS ORDERED: SODIUM CHLORIDE 0.9% 1,000 ML IV SCH (08:00)
[2024-05-31] MEDS ORDERED: lisinopriL 5 MG TAB PO SCH (09:00)
[2024-05-31] MEDS ORDERED: LEVOTHYROXINE 50 MCG TAB PO SCH (09:00)
[2024-05-31] MEDS ORDERED: MONTELUKAST 10 MG TAB PO SCH (09:00)
[2024-05-31] MEDS ORDERED: OXYBUTYNIN 10 MG TAB.ER.24 PO SCH (09:00)
[2024-05-31] MEDS ORDERED: NON FORMULARY DRUG (Citalopram Hydrobromide [Celexa] 40 MG Tablet) PO SCH (09:00)
[2024-05-31] MEDS ORDERED: CLOPIDOGREL 75 MG TAB PO SCH (09:00)
[2024-05-31 09:35] VITALS: PULSE 56
[2024-05-31 12:27] VITALS: BP 130/66
[2024-06-01] MEDS ORDERED: ASPIRIN 81 MG PO SCH (09:00)
[2024-06-05] MEDS ORDERED: NON FORMULARY DRUG (Semaglutide [Ozempic] 2 MG/0.75 ML Pen.Injctr) SQ SCH (07:54)
== END 2024-05-31 11:42 | disposition home or self-care (01) ==
LOC: CATHCVL 06:10
PROVIDERS: ATTEND Internal Medicine Interventional Cardiology
DX: R94.39 Abnormal result of other cardiovascular function study (principal); I25.10 Atherosclerotic heart disease of native coronary artery without angina pectoris; I10 Essential (primary) hypertension; E78.5 Hyperlipidemia, unspecified; E11.9 Type 2 diabetes mellitus without complications; R06.09 Other forms of dyspnea; Z79.82 Long term (current) use of aspirin; Z79.890 Hormone replacement therapy; Z79.4 Long term (current) use of insulin; Z79.02 Long term (current) use of antithrombotics/antiplatelets; Z79.51 Long term (current) use of inhaled steroids; Z79.85 Long-term (current) use of injectable non-insulin antidiabetic drugs
CPT/HCPCS: 93458; J2250; J1644 ×3; J2003; Q9967; J3010

== ENCOUNTER → 2024-08-03 | Outpatient (CLI) | payer MEDICARE, OTHER ==
--- NOTE | 2024-08-06 12:29 | PE ---
EXAMINATION TYPE: PET CT fusion whole body DATE OF EXAM: 08/03/2024 CLINICAL INDICATION:Female, 69 years old with history of C43.22 Melanoma; TECHNIQUE: Following the intravenous administration of 9.89 mCi of F-18 FDG, whole body images are performed from the skull vertex to the feet. Images are reviewed on the computer in the coronal, axi al, and sagittal planes. Reconstructed rotating images are created on independent workstation and re viewed on the computer. A non-contrast CT is performed in conjunction with the PET scan. Glucose le helene 141 mg/dL CT DLP: 1747.3 mGycm, Automated exposure control for dose reduction was used. COMPARISON: CT 02/15/2024, 01/19/2024, PET/CT 08/08/2023, 08/15/2022, 08/15/2021, 08/23/2020, MRI: None FINDINGS: Mediastinal SUV mean is 2.8. Hepatic parenchyma SUV mean is 3.2. SKULL BASE AND NECK: No suspicious radiotracer activity. CHEST, MEDIASTINUM, AND HILAR REGION: No suspicious radiotracer activity. ABDOMEN AND PELVIS: No suspicious radiotracer activity. MUSCULOSKELETAL STRUCTURES: No suspicious radiotracer activity. OTHER CT: Bilateral carotid bulb calcifications. Mild atherosclerotic calcification of the aorta and its branches. Mild coronary arterial calcifications. Cardiomegaly. Couple dystrophic calcifications w ithin the right breast. Elevation of the right hemidiaphragm. Gallbladder is surgically absent. Advan jaspal bilateral shoulder arthropathy. Underdistended urinary bladder with nondependent focus of gas. Th ere is circumferential wall thickening measuring up to 1.2 cm. Uterus is surgically absent. Distal co lonic diverticulosis without evidence for acute diverticulitis. Mild colonic stool burden. Osteoarthr itic changes of both knees. Multilevel degenerative changes of the spine. IMPRESSION: 1. No suspicious radiotracer activity to suggest recurrent or metastatic melanoma. 2. Circumferential wall thickening of the urinary bladder with single focus of nondependent gas. May relate to recent instrumentation versus cystitis. Correlate with clinical history and urinalysis. [facility], , 08/06/2024 12:26 PM
== END | disposition home or self-care (01) ==
LOC: RADPETMAIN 09:16
PROVIDERS: ATTEND Internal Medicine Hematology & Oncology
DX: C43.22 Malignant melanoma of left ear and external auricular canal (principal); N32.89 Other specified disorders of bladder
CPT/HCPCS: 78816; A9552

== ENCOUNTER 2024-09-01 14:43 | Emergency (ER) | payer MEDICARE, OTHER ==
[2024-09-01 14:52] VITALS: TEMP 98.3
[2024-09-01 14:59] LABS: Glucose,Whole Blood 292 mg/dL (70-110)
[2024-09-01 15:59] LABS: Basophils # (A) 0.15 10*3/uL (0.00-0.10); Basophils % (A) 1.3 %; Eosinophils # (A) 0.22 10*3/uL (0.04-0.35); Eosinophils % (A) 1.9 %; HCT 49.2 % (37.2-46.3); HGB 16.7 g/dL (12.0-15.0); Lymphocytes # (A) 1.64 10*3/uL (0.90-5.00); Lymphocytes % (A) 13.8 %; MCH 30.5 pg (27.0-32.0); MCHC 33.9 g/dL (32.0-37.0); MCV 89.8 fL (80.0-97.0); Monocytes # (A) 0.63 10*3/uL (0.20-1.00); Monocytes % (A) 5.3 %; Neutrophils # (A) 9.20 10*3/uL (1.80-7.70); Neutrophils % (A) 77.4 %; Platelet Count 305 10*3/uL (140-440); RBC 5.48 10*6/uL (4.10-5.20); RDW 12.6 % (11.5-14.5); WBC 11.88 10*3/uL (4.50-10.00)
[2024-09-01] MEDS: SODIUM CHLORIDE 0.9% 1,000 ML IV ONE (16:04)
[2024-09-01] MEDS: ONDANSETRON 4 MG/2 ML VIAL IVP STA (16:04)
[2024-09-01 16:12] LABS: ALT 25 U/L (4-34); AST 24 U/L (14-36); African American GFR (CKD) >90 (>60 ml/min/1.73 sqM); Albumin 4.2 g/dL (3.5-5.0); Alkaline Phosphatase 82 U/L (38-126); Anion Gap 13 mmol/L; Blood Urea Nitrogen 28 mg/dL (7-17); Calcium 10.2 mg/dL (8.4-10.2); Carbon Dioxide 22 mmol/L (22-30); Chloride 100 mmol/L (98-107); Glucose 327 mg/dL (74-99); Lipase 416 U/L (23-300); Non-African American GFR(CKD) 89 (>60 ml/min/1.73 sqM); Potassium 4.9 mmol/L (3.5-5.1); Sodium 135 mmol/L (137-145); Total Protein 6.8 g/dL (6.3-8.2)
--- NOTE | 2024-09-01 17:10 | ED ---
Nausea/Vomiting/Diarrhea HPI - General Chief complaint: Nausea/Vomiting/Diarrhea Stated complaint: nvd Time Seen by Provider: 09/01/24 14:50 Source: patient, EMS Mode of arrival: EMS - History of Present Illness Initial comments: 69-year-old female presents emergency department from [employer]. States that she was at the store when she had onset of left lower quadrant abdominal pain. Has associated nausea, vomiting and diarrhea. States that she is concerned for diverticulitis that she states her symptoms are similar. EMS was called. They took her sugar and was found to be in the 300s. Patient states that she forgot to take her insulin today. She denies any fevers. No dysuria, hematuria or difficulty voiding. Denies black or bloody stools. No vaginal bleeding or discharge. No chest pain or shortness of breath. No other alleviating, precipitating or modifying factors - Related Data Home Medications Medication Instructions Recorded Confirmed Citalopram Hydrobromide [CeleXA] 40 mg PO DAILY 09/05/13 05/31/24 Levothyroxine Sodium [Synthroid] 50 mcg PO DAILY 09/05/13 05/30/24 Lisinopril [Prinivil] 5 mg PO DAILY 09/05/13 05/30/24 Montelukast [Singulair] 10 mg PO DAILY 09/05/13 05/31/24 Insulin Aspart Prot/Insuln Asp 52 unit SQ HS 06/25/20 05/31/24 [NovoLOG MIX 70-30 Flexpen] oxyBUTYnin chloride [Ditropan XL] 10 mg PO DAILY 06/25/20 05/30/24 Albuterol Sulfate [Albuterol 2 puff PO RT-Q6H PRN 02/16/24 05/30/24 Sulfate Hfa] Alendronate Sodium [Fosamax] 10 mg PO DAILY 02/16/24 05/30/24 Brimonidine Tartrate [Alphagan P 1 drops BOTH EYES BID 02/16/24 05/30/24 0.2% Ophth Soln] Cholestyramine (with Sugar) 4 gm PO DAILY 02/16/24 05/30/24 [Cholestyramine Packet] Clopidogrel [Plavix] 75 mg PO DAILY 02/16/24 05/31/24 Dorzolamide-Timol 2.23%/0.68% 1 drop BOTH EYES BID 02/16/24 05/30/24 [Cosopt] Empagliflozin [Jardiance] 10 mg PO DAILY 02/16/24 05/30/24 Fluticasone/Umeclidin/Vilanter 1 puff INHALATION RT-DAILY 02/16/24 05/30/24 [Trelegy Ellipta 100-62.5-25] Latanoprost [Latanoprost 0.005%] 1 drop BOTH EYES HS 02/16/24 05/30/24 Naproxen Sodium 550 mg PO BID PRN 02/16/24 05/30/24 Semaglutide [Ozempic] 2 mg SQ MO 02/16/24 05/31/24 Aspirin 81 mg PO DAILY 05/30/24 05/31/24 Cholecalciferol [Vitamin D3 (25 1 tab PO DAILY 05/30/24 05/30/24 Mcg = 1000 Iu)] Garlic 1 tab PO DAILY 05/30/24 05/30/24 Previous Rx's Medication Instructions Recorded Cephalexin [Keflex] 500 mg PO BID #14 cap 09/01/24 HYDROcodone/APAP 5-325MG [Commerce 1 tab PO Q6HR PRN 3 Days #12 tab 09/01/24 5-325] Ketorolac [Toradol] 10 mg PO Q8HR #15 tab 09/01/24 Ondansetron Odt [Zofran Odt] 4 mg PO Q8HR PRN #20 tab 09/01/24 Tamsulosin [Flomax] 0.4 mg PO DAILY #7 cap 09/01/24 Allergies Allergy/AdvReac Type Severity Reaction Status Date / Time cayenne Allergy Rash/Hives Verified 09/01/24 14:52 codeine Allergy Nausea & Verified 09/01/24 14:52 Vomiting, Headache lemon [Lemon] Allergy Rash/Hives Verified 09/01/24 14:52 Sulfa (Sulfonamide Allergy Swelling Verified 09/01/24 14:52 Antibiotics) hoyt AdvReac Severe Diarrhea Verified 09/01/24 14:52 nickel AdvReac Unknown red skin Verified 09/01/24 14:52 coffee (Coffea arabica) AdvReac Diarrhea Verified 09/01/24 14:52 Jewelry AdvReac Unknown Red skin Uncoded 09/01/24 14:52 Review of Systems ROS Statement: Those systems with pertinent positive or pertinent negative responses have been documented in the HPI. ROS Other: All systems not noted in ROS Statement are negative. Past Medical History Past Medical History: Asthma, Cancer, COPD, Diabetes Mellitus, GERD/Reflux, Hyperlipidemia, Hypertension, Pneumonia, Thyroid Disorder Additional Past Medical History / Comment(s): IDDM, HX MELANOMA & LYMPH NODES, TORN LEFT ROTATOR CUFF, HX COLON POYPS, OAB, HAVING DIARRHEA. diverticulitis History of Any Multi-Drug Resistant Organisms: None Reported Past Surgical History: Appendectomy, Breast Surgery, Section, C holecystectomy, Heart Catheterization, Hysterectomy, Orthopedic Surgery Additional Past Surgical History / Comment(s): BREAST REDUCTION; REMOVAL OF MELANOMA OFF TOP HEAD & REMOVED LYMPH NODE-6 ON EACH SIDE OF NECK ;L ANKLE FX & REPAIR., 4 lymph nodes at back of head removed. COLONOSCOPY, Past Anesthesia/Blood Transfusion Reactions: No Reported Reaction, Motion Sickness Additional Past Anesthesia/Blood Transfusion Reaction / Comment(s): HX VERTIGO Past Psychological History: No Psychological Hx Reported Smoking Status: Never smoker Past Alcohol Use History: None Reported Past Drug Use History: None Reported - Past Family History Mother Family Medical History: Cancer Additional Family Medical History / Comment(s): mother breast and bone, Father Family Medical History: Cancer Son(s) Family Medical History: Cancer Brother(s) Family Medical History: Cancer Sister(s) Family Medical History: Cancer General Exam General appearance: alert, in no apparent distress Head exam: Present: atraumatic, normocephalic, normal inspection Eye exam: Present: normal appearance, PERRL, EOMI. Absent: scleral icterus, conjunctival injection, periorbital swelling ENT exam: Present: normal exam, mucous membranes moist Neck exam: Present: normal inspection. Absent: tenderness, meningismus, lymphadenopathy Respiratory exam: Present: normal lung sounds bilaterally. Absent: respiratory distress, wheezes, rales, rhonchi, stridor Cardiovascular Exam: Present: regular rate, normal rhythm, normal heart sounds. Absent: systolic murmur, diastolic murmur, rubs, gallop, clicks GI/Abdominal exam: Present: soft, tenderness (Left lower quadrant), normal bowel sounds. Absent: distended, guarding, rebound, rigid Extremities exam: Present: normal inspection, full ROM, normal capillary refill. Absent: tenderness, pedal edema, joint swelling, calf tenderness Back exam: Present: normal inspection Neurological exam: Present: alert, oriented X3, CN II-XII intact Psychiatric exam: Present: normal affect, normal mood Skin exam: Present: warm, dry, intact, normal color. Absent: rash Course Vital Signs 09/01/24 09/01/24 09/01/24 14:45 17:27 19:18 Temperature 98.3 F Pulse Rate 68 64 66 Respiratory 18 20 20 Rate Blood Pressure 113/71 118/70 149/89 O2 Sat by Pulse 93 L 92 L 93 L Oximetry Medical Decision Making - Medical Decision Making Was pt. sent in by a medical professional or institution (, PA, STOCK DRIVER, urgent care, hospital, or residential...) When possible be specific @ -No Did you speak to anyone other than the patient for history (EMS, parent, family, police, friend...)? What history was obtained from this source @ -Spoke with EMS for history Did you review nursing and triage notes (agree or disagree)? Why? @ -I reviewed and agree with nursing and triage notes Were old charts reviewed (outside hosp., previous admission, EMS record, old EKG, old radiological studies, urgent care reports/EKG's, residential records)? Report findings @ -No old charts were reviewed Differential Diagnosis (chest pain, altered mental status, abdominal pain women, abdominal pain men, vaginal bleeding, weakness, fever, dyspnea, syncope, headache, dizziness, GI bleed, back pain, seizure, CVA, palpatations, mental health, musculoskeletal)? @ -Differential Abdominal Pain Women: Appendicitis, Cholecystitis, diverticulosis, ischemic bowel, pancreatitis, he patitis, UTI, gastroenteritis, AAA, incarcerated hernia, bowel obstruction, constipation, inflammatory bowel, hepatitis, peptic ulcer disease, splenic infarction, perforated viscus, vulvitis, ovarian torsion, PID, kidney stone, placenta abruption, this is not meant to be an all-inclusive list EKG interpreted by me (3pts min.). @ -Yes and demonstrates sinus bradycardia with a rate of 58. SC interval 165. QRS 94. QTc of 413. No acute ST segment elevations. ST depressions 3, aVF, V3 through V6. X-rays interpreted by me (1pt min.). @ -None done CT interpreted by me (1pt min.). @ -yes, which demonstrates left-sided ureteral stone U/S interpreted by me (1pt. min.). @ -None done What testing was considered but not performed or refused? (CT, X-rays, U/S, labs)? Why? @ -None What meds were considered but not given or refused? Why? @ -None Did you discuss the management of the patient with other professionals (professionals i.e. , PA, STOCK DRIVER, lab, RT, psych nurse, nephrology social worker, criminal justice lawyer, teacher, tank officer, caser)? Give summary @ -No Was smoking cessation discussed for >3mins.? @ -No Was critical care preformed (if so, how long)? @ -No Were there social determinants of health that impacted care today? How? (Homelessness, low income, unemployed, alcoholism, drug addiction, transportation, low edu. Level, literacy, decrease access to med. care, intermediate, rehab)? @ -No Was there de-escalation of care discussed even if they declined (Discuss DNR or withdrawal of care, Hospice)? DNR status @ -No What co-morbidities impacted this encounter? (DM, HTN, Smoking, COPD, CAD, Cancer, CVA, ARF, Chemo, Hep., AIDS, mental health diagnosis, sleep apnea, morbid obesity)? @ -Diabetes mellitus, diverticulitis Was patient admitted / discharged? Hospital course, mention meds given and route, prescriptions, significant lab abnormalities, going to OR and other pertinent info. @ -Upon arrival patient seen and evaluated in bed 26. Thorough history and physical exam was performed. IV access was established and laboratory studies are conducted. CT was performed due to patient's reported history of diverticulitis. Laboratory studies are remarkable for a glucose of 327. Urinalysis demonstrates moderate leukocyte esterase with occasional bacteria. She was given a dose of Rocephin. CT does demonstrate a left-sided 2 mm ureteral stone without hydronephrosis. Results are discussed with the patient. She states that she would prefer to go home at this time. She is given a dose of antibiotics. Patient will be discharged home with Toradol, Commerce, Keflex, Flomax and Zofran. Instructed to take these medications as they are instructed. Follow-up with her doctor in 2 to 4 days. Return for any new or worsening symptoms. Watch her sugars closely and return for any new or worsening symptoms. Patient agreeable to plan she was discharged in stable condition Undiagnosed new problem with uncertain prognosis? @ -No Drug Therapy requiring intensive monitoring for toxicity (Heparin, Nitro, Insulin, Cardizem)? @ -No Were any procedures done? @ -No Diagnosis/symptom? @ -Acute left lower quadrant abdominal pain, acute left ureteral stone, abnormal UA, hyperglycemia Acute, or Chronic, or Acute on Chronic? @ -Acute Uncomplicated (without systemic symptoms) or Complicated (systemic symptoms)? @ -Complicated Side effects of treatment? @ -No Exacerbation, Progression, or Severe Exacerbation? @ -No Poses a threat to life or bodily function? How? (Chest pain, [place], [place], pneumonia, PE, COPD, DKA, ARF, appy, cholecystitis, CVA, Diverticulitis, Homicidal, Suicidal, threat to staff... and all critical care pts) @ -No - Lab Data Result diagrams: 09/01/24 15:52 09/01/24 15:56 Lab Results 09/01/24 09/01/24 09/01/24 Range/Units 14:57 15:52 15:56 WBC 11.88 H (4.50-10.00) 10*3/uL RBC 5.48 H (4.10-5.20) 10*6/uL Hgb 16.7 H (12.0-15.0) g/dL Hct 49.2 H (37.2-46.3) % MCV 89.8 (80.0-97.0) fL MCH 30.5 (27.0-32.0) pg MCHC 33.9 (32.0-37.0) g/dL Plt Count 305 (140-440) 10*3/uL MPV 10.1 (9.5-12.2) fL Immature Gran % (Auto) 0.3 % Neutrophils % 77.4 % Lymphocytes % 13.8 % Monocytes % 5.3 % Eosinophils % 1.9 % Basophils % 1.3 % Immature Gran # 0.04 (0.00-0.04) 10*3/uL Neutrophils # 9.20 H (1.80-7.70) 10*3/uL Lymphocytes # 1.64 (0.90-5.00) 10*3/uL Monocytes # 0.63 (0.20-1.00) 10*3/uL Eosinophils # 0.22 (0.04-0.35) 10*3/uL Basophils # 0.15 H (0.00-0.10) 10*3/uL Sodium 135 L (137-145) mmol/L Potassium 4.9 (3.5-5.1) mmol/L Chloride 100 (98-107) mmol/L Carbon Dioxide 22 (22-30) mmol/L Anion Gap 13 mmol/L BUN 28 H (7-17) mg/dL Creatinine 0.66 (0.52-1.04) mg/dL Est GFR (CKD-EPI)AfAm >90 (>60 ml/min/1.73 sqM) Est GFR (CKD-EPI)NonAf 89 (>60 ml/min/1.73 sqM) Glucose 327 H (74-99) mg/dL POC Glucose (mg/dL) 292 H (70-110) mg/dL POC Glu Collar Closer Lockstitch ID Frankie Kristine Plasma Lactic Acid Misbah (0.7-2.0) mmol/L Calcium 10.2 (8.4-10.2) mg/dL Total Bilirubin 0.8 (0.2-1.3) mg/dL AST 24 (14-36) U/L ALT 25 (4-34) U/L Alkaline Phosphatase 82 (38-126) U/L Total Protein 6.8 (6.3-8.2) g/dL Albumin 4.2 (3.5-5.0) g/dL Lipase 416 H (23-300) U/L Urine Color Urine Appearance (Clear) Urine pH (5.0-8.0) Ur Specific [place] (1.001-1.035) Urine Protein (Negative) Urine Glucose (UA) (Negative) Urine Ketones (Negative) Urine Blood (Negative) Urine Nitrite (Negative) Urine Bilirubin (Negative) Urine Urobilinogen (<2.0) mg/dL Ur Leukocyte Esterase (Negative) Urine RBC (0-5) /hpf Urine WBC (0-5) /hpf Ur Squamous Epith Cells (0-4) /hpf Urine Bacteria (None) /hpf 09/01/24 09/01/24 Range/Units 15:56 18:04 WBC (4.50-10.00) 10*3/uL RBC (4.10-5.20) 10*6/uL Hgb (12.0-15.0) g/dL Hct (37.2-46.3) % MCV (80.0-97.0) fL MCH (27.0-32.0) pg MCHC (32.0-37.0) g/dL Plt Count (140-440) 10*3/uL MPV (9.5-12.2) fL Immature Gran % (Auto) % Neutrophils % % Lymphocytes % % Monocytes % % Eosinophils % % Basophils % % Immature Gran # (0.00-0.04) 10*3/uL Neutrophils # (1.80-7.70) 10*3/uL Lymphocytes # (0.90-5.00) 10*3/uL Monocytes # (0.20-1.00) 10*3/uL Eosinophils # (0.04-0.35) 10*3/uL Basophils # (0.00-0.10) 10*3/uL Sodium (137-145) mmol/L Potassium (3.5-5.1) mmol/L Chloride (98-107) mmol/L Carbon Dioxide (22-30) mmol/L Anion Gap mmol/L BUN (7-17) mg/dL Creatinine (0.52-1.04) mg/dL Est GFR (CKD-EPI)AfAm (>60 ml/min/1.73 sqM) Est GFR (CKD-EPI)NonAf (>60 ml/min/1.73 sqM) Glucose (74-99) mg/dL POC Glucose (mg/dL) (70-110) mg/dL POC Glu Collar Closer Lockstitch ID Plasma Lactic Acid Misbah 1.9 (0.7-2.0) mmol/L Calcium (8.4-10.2) mg/dL Total Bilirubin (0.2-1.3) mg/dL AST (14-36) U/L ALT (4-34) U/L Alkaline Phosphatase (38-126) U/L Total Protein (6.3-8.2) g/dL Albumin (3.5-5.0) g/dL Lipase (23-300) U/L Urine Color Colorless Urine Appearance Clear (Clear) Urine pH 5.0 (5.0-8.0) Ur Specific [place] 1.035 (1.001-1.035) Urine Protein Negative (Negative) Urine Glucose (UA) 4+ H (Negative) Urine Ketones Negative (Negative) Urine Blood Negative (Negative) Urine Nitrite Negative (Negative) Urine Bilirubin Negative (Negative) Urine Urobilinogen <2.0 (<2.0) mg/dL Ur Leukocyte Esterase Moderate H (Negative) Urine RBC 3 (0-5) /hpf Urine WBC 11 H (0-5) /hpf Ur Squamous Epith Cells 1 (0-4) /hpf Urine Bacteria Occasional H (None) /hpf Disposition Clinical Impression: Ureteral stone, LLQ pain, Nausea & vomiting, Hyperglycemia Disposition: HOME SELF-CARE Condition: Stable Instructions (If sedation given, give patient instructions): Ureteral Stones (ED) Additional Instructions: You are passing a kidney stone. Please alternate taking the Toradol with the Commerce as needed for pain control. Take Zofran as needed for nausea. Take the antibiotics as they are instructed. Follow-up with your doctor in 2 to 4 days and return for any new or worsening symptoms. Prescriptions: Tamsulosin [Flomax] 0.4 mg PO DAILY #7 cap Cephalexin [Keflex] 500 mg PO BID #14 cap HYDROcodone/APAP 5-325MG [Commerce 5-325] 1 tab PO Q6HR PRN 3 Days #12 tab PRN Reason: Severe Breakthrough Pain Ketorolac [Toradol] 10 mg PO Q8HR #15 tab Ondansetron Odt [Zofran Odt] 4 mg PO Q8HR PRN #20 tab PRN Reason: Nausea Is patient prescribed a controlled substance at d/c from ED?: Yes When asked, does pt state using other controlled substances?: No If prescribed controlled substance>3 days was MAPS reviewed?: Prescribed <3 Days If opioid is for acute pain is fill amount 7 days or less?: Yes If Rx opioid, was Start Talking consent form obtained?: Yes Referrals: Anna Lopez DO [Primary Care Provider] - 1-2 days Abdi Hilliard MD [STAFF PHYSICIAN] - 1-2 days Time of Disposition: 19:07
--- NOTE | 2024-09-01 17:14 | CT ---
EXAMINATION TYPE: CT abdomen pelvis w con DATE OF EXAM: 09/01/2024 4:43 PM COMPARISON: CT abdomen pelvis most recent from 02/15/2024. CLINICAL INDICATION: Female, 69 years old with history of llq pain, hx diverticulitis; LLQ pain, naus ea, vomiting TECHNIQUE: Axial CT abdomen pelvis w con;Sagittal and coronal reformats were created on a separate w orkstation. Contrast used:100ml mL of Isovue 300 with IV Contrast, (none if empty) Oral contrast used: without Oral Contrast (none if empty) CT DLP: 1932.9 mGycm, Automated exposure control for dose reduction was used. FINDINGS: LOWER CHEST: Heart is mildly enlarged for size. ABDOMEN LIVER: Unremarkable GALLBLADDER AND BILE DUCTS: The gallbladder is surgically absent. PANCREAS: Unremarkable. SPLEEN: Unremarkable. ADRENAL GLANDS: Unremarkable. KIDNEYS AND URETERS: Distal left 2 mm ureteral calculus without significant hydronephrosis. Finding i s new from 2023 exam No right renal calculi and no right hydronephrosis. PELVIS BLADDER: No evidence for wall thickening or mass given limitations of exam. REPRODUCTIVE: The uterus is surgically absent. ABDOMEN & PELVIS STOMACH AND BOWEL: No evidence of bowel obstruction. Scattered colonic diverticula. PERITONEUM/RETROPERITONEUM: No evidence of pneumoperitoneum or free fluid. VASCULATURE: No evidence of aortic aneurysm. MUSCULOSKELETAL: No acute osseous abnormalities. Mild disc degeneration changes are present throughou t the thoracolumbar spine. LYMPH NODES: No gross evidence for lymphadenopathy. SOFT TISSUE/ABDOMINAL WALL: Unremarkable IMPRESSION: 1. Distal left 2 mm ureteral calculus without significant hydronephrosis correlate with urinalysis. Finding may be similar to prior 08/03/2024. 2. Scattered colonic diverticula are seen in the sigmoid colon. No evidence for diverticulitis. [facility], , 09/01/2024 5:12 PM
[2024-09-01 17:30] VITALS: RESP 20
[2024-09-01 18:13] LABS: Bacteria,Urine Occasional /hpf; Bilirubin,Urine Negative (Negative); Blood,Urine Negative (Negative); Color,Urine Colorless; Glucose,Urine (UA) 4+ (Negative); Ketones,Urine Negative (Negative); Leukocyte Esterase,Urine Moderate (Negative); Nitrite,Urine Negative (Negative); PH, Urine 5.0 (5.0-8.0); Protein,Urine Negative (Negative); RBC,Urine 3 /hpf (0-5); Specific Gravity,Urine 1.035 (1.001-1.035); Squamous Epithelial Cell,Urine 1 /hpf (0-4); Urobilinogen,Urine <2.0 mg/dL (<2.0); WBC,Urine 11 /hpf (0-5)
[2024-09-01] MEDS: KETOROLAC 15 MG/ML 1 ML VIAL IVP STA (19:06)
[2024-09-01] MEDS: cefTRIAXone IN SWFI 1,000 MG/10 ML SYRINGE IVP STA (19:06)
[2024-09-01 19:21] VITALS: BP 149/89; PULSE 66
== END 2024-09-01 19:25 | disposition home or self-care (01) ==
LOC: EC 14:43
DX: N20.1 Calculus of ureter (principal); E11.65 Type 2 diabetes mellitus with hyperglycemia; R11.2 Nausea with vomiting, unspecified; Z88.5 Allergy status to narcotic agent; Z91.018 Allergy to other foods; Z88.2 Allergy status to sulfonamides; Z88.8 Allergy status to other drugs, medicaments and biological substances; Z87.19 Personal history of other diseases of the digestive system
CPT/HCPCS: 36415; 93005; 80053; 83605; 83690; 85025; 81001; 74177; 99285; 96374; 96375 ×2; 96361; J2405; J0696; J1885; Q9967